=== PATIENT | male | born 1955 | race Caucasian/White ===

== ENCOUNTER 2024-02-05 14:36 | Emergency (ER) | payer MEDICARE, OTHER, SELFPAY ==
[2024-02-05 14:41] VITALS: BP 115/97; BMI 35.6
[2024-02-05 15:00] VITALS: BP 128/70
[2024-02-05 15:23] LABS: % Basophils 0.9 % (0-2); % Eosinophils 2.8 % (0-6); % Immature Granulocytes 1.2 % (0-0.5); % Lymphocytes 23.5 % (20.5-51.1); % Monocytes 9.3 % (1.7-9.3); % Neutrophils 62.3 % (42.2-75.2); Absolute Basophils 0.1 10^3/uL (0-0.2); Absolute Eosinophils 0.2 10^3/uL (0-0.7); Absolute Immature Granulocytes 0.1 10^3/uL (0-0.05); Absolute Lymphocytes 1.9 10^3/uL (1.2-3.4); Absolute Monocytes 0.8 10^3/uL (0.1-0.6); Absolute Neutrophils 5.1 10^3/uL (1.4-6.5); Hematocrit 43.9 % (39.0-52.0); Hemoglobin 14.1 g/dL (13.0-18.0); Mean Corp Hgb Conc. 32.1 g/dL (33.0-37.0); Mean Corpuscular Hgb 32.2 pg (27.0-31.0); Mean Corpuscular Volume 100.2 fL (80.0-94.0); Mean Platelet Volume 9.9 fL (7.4-10.4); Nucleated Red Blood Cells % 0 % (-); Platelet Count 271 10^3/uL (130-400); Red Blood Cell Count 4.38 10^6/uL (4.70-6.10); Red Cell Dist. Width 13.8 % (11.5-14.5); White Blood Cell Count 8.2 10^3/uL (4.8-10.8)
--- NOTE | 2024-02-05 15:25 | ED.GENMED ---
History of Present Illness
General
Chief Complaint: Swelling
Source: patient and retirement records
Exam Limitations: none
Time Seen by Provider: 02/05/24 15:06
Nursing documentation reviewed up to this point in time: agreed with
History of Present Illness
History of Present Illness:
68-year-old male referred from his care facility for persistent DVT of his left lower extremity for 3 weeks despite Eliquis use
Patient denies chest pain or shortness of breath he does admit to swelling of his left lower extremity initially told me that he was not on any blood thinners they were stopped because he had cardiac stents placed, this apparently is not true, based
upon my review of the retirement notes and the call into our charge nurse
Past History
Past History
ED Past Medical History: Arrthythmia (Paroxysmal atrial fibrillation), CAD, COPD, HTN, Hypercholesterolemia, [place] (February 2017), Other (Depression, anemia, tobacco dependence) and Other
ED Past Surgical History: Cardiac (PTCA with stent) and Urological (Right nephrectomy June 2017)
Social History
Tobacco: Smoker
Alcohol: Chronic alcoholic
Drug: None
Personal:
Living: with family (with brother)
Employment: Retired
Family History
Family History: Other (No significant)
Review of Systems
Review of Systems
All Other Systems: Not applicable
Respiratory: Reports no symptoms
Cardiac: Reports no symptoms
ABD/GI: Reports no symptoms
Phy Exam
Physical Exam
Physical Exam:
Physical Exam
General: Chronically ill male
Neck: No jaw
Heart: s1/s2 regular rate and rhythm, no murmur. equal radial pulses.
Lungs: no acute respiratory distress. clear bilaterally
Abdomen: Nontender
Neuro: alert and oriented. Contractures are
Skin: no rash
Psychiatric: well kept.
Extremities: Swelling left greater than right calf
Scores
Heart Failure Risk
Heart Failure Risk Score: Not Applicable
Course
Orders/Labs/Results
Orders:
Orders
02/05/24 15:06
IV Insert/Care/Rem.- Treatment PRN
02/05/24 15:07
Complete Blood Count/With Diff Urgent
Comprehensive Metabolic Panel Urgent
02/05/24 15:23
US Periph Venous LOWER Ext LT Urgent
Comment:
Reason For Exam: swelling
02/05/24 15:24
Electrocardiogram (*1) Urgent
Reason for Study: Palpitations
EKG- Treatment ONCE
02/05/24 16:18
Apixaban [Eliquis] 5 mg PO NOW STA
Abnormal Lab Results
02/05/24
15:07
RBC 4.38 L 10^6/uL
(4.70-6.10)
MCV 100.2 H fL
(80.0-94.0)
MCH 32.2 H pg
(27.0-31.0)
MCHC 32.1 L g/dL
(33.0-37.0)
Abs Immat Gran (auto) 0.1 H 10^3/uL
(0-0.05)
Absolute Monos (auto) 0.8 H 10^3/uL
(0.1-0.6)
Immature Gran % 1.2 H %
(0-0.5)
BUN 21 H mg/dl
(9-20)
Total Protein 5.7 L g/dl
(6.3-8.2)
02/05/24 15:07
02/05/24 15:07
Vital Signs
Initial and Last Documented VS:
Initial Vital Signs
Temp Pulse Resp BP Pulse Ox
98.7 F 67 14 115/97 96
02/05/24 14:41 02/05/24 14:41 02/05/24 14:41 02/05/24 14:41 02/05/24 14:41
Last Documented Vital Signs
Temp Pulse Resp BP Pulse Ox
98.7 F 62 13 128/70 96
02/05/24 14:41 02/05/24 15:30 02/05/24 15:30 02/05/24 15:00 02/05/24 15:30
MDM/Problems Addressed
Differential Diagnosis Includes:
DVT, already on Eliquis, cellulitis, question treatment failure
MDM/Problems Addressed:
Lower extremity swelling
Chronic conditions affecting care:
Prior DVT muscle wasting AF
Chronic conditions affecting care: Arrhythmia
Acute Exacerbation and/or Progression of Chronic Illness: Arrhythmia
*Radiology
Radiology exam reviewed: radiology read reviewed
*Measurement Analyst Interpretation
Rate: normal
Interpretation: normal
Heart Rate: 78
Rhythm: sinus
*Critical Care Note
Total Time (30-74mins, 75-104mins- exclusive of procedures): Not Applicable
Update Note
Update Note:
Update, meds reconciled for pharmacy he has been on Eliquis 5 twice daily apparently for about a month ultrasound reviewed with the radiologist,
Reviewed with on-call hospitalist not yet a treatment failure as would typically be on the med for longer than a month, no signs of arterial compromise/phlegmasia
Will discharge out continue Eliquis 5 twice daily
ED Attending Note
-
Portions of this chart may have been created with voice recognition software.� Occasional wrong word or��sound alike� substitutions may have occurred due to the inherent limitations of voice recognition software.
Discharge Plan
Departure
Patient Disposition: Jail/SNF
Date of Disposition: 02/05/24
Time of Disposition: 16:25
Condition: Good
Discharge Problem:
DVT (deep venous thrombosis)
Instructions: Deep vein thrombosis (blood clot in the leg)
Prescriptions:
No Action
atorvastatin 80 MG tablet
60 mg PO HS
Anoro Ellipta 1 EACH blister with device
1 puff inhalation R DAILY
acetaminophen [Tylenol] 325 mg Tablet
650 mg PO Q4HPRN PRN (Reason: mild pain)
lidocaine 4 % Adhesive Patch,Medicated
1 patch TOPICAL DAILYPRN PRN (Reason: right shoulder)
tizanidine 2 mg Tablet
2 mg PO BID
trazodone 50 mg Tablet
175 mg PO HS
clonazepam [Klonopin] 0.5 mg Tablet
0.5 mg PO DAILY
lidocaine 4 % Cream
1 applic TOPICAL TIDPRN PRN (Reason: right calf)
loperamide 2 mg Tablet
2 mg PO Q6HPRN PRN (Reason: diarrhea)
dextromethorphan-guaifenesin [Robitussin-DM] 10-100 mg/5 mL Syrup
10 ml PO Q4HPRN PRN (Reason: cough)
aspirin 81 mg Tablet,Delayed Release (Dr/Ec)
81 mg PO BID
guaifenesin [Robafen] 100 mg/5 mL Liquid
200 mg PO Q4HPRN PRN (Reason: cough)
magnesium hydroxide [Milk of Magnesia] 400 mg/5 mL Suspension
2,400 mg PO [id number] PRN (Reason: if no bm on 3rd day)
tamsulosin [Flomax] 0.4 mg Capsule
0.4 mg PO HS
bisacodyl [Dulcolax (bisacodyl)] 10 mg Suppository
10 mg NV DAILYPRN PRN (Reason: if no aftr mom)
Fleet Enema 19-7 gram/118 mL Enema
118 ml NV DAILYPRN PRN (Reason: if no bm aftr dulcalax)
gabapentin 300 mg Capsule
300 mg PO BID
albuterol sulfate [ProAir HFA] 90 mcg/actuation Hfa Aerosol Inhaler
2 puff INHALATION R Q4HPRN PRN (Reason: sob)
fluticasone propionate [Flonase] 50 mcg/actuation [place],Suspension
1 spray INTRANASAL DAILY
finasteride 5 mg Tablet
5 mg PO DAILY
Icy Hot (menthol) 5 % Adhesive Patch,Medicated
1 patch TOPICAL DAILY
bupropion HCl 150 mg Tablet Extended Release 24 Hr
150 mg PO DAILY
aripiprazole [Abilify] 2 mg Tablet
2 mg PO HS
tramadol 100 mg Tablet Extended Release 24 Hr
100 mg PO DAILY
Lumigan 0.01 % Drops
1 drp BOTH EYES HS
melatonin 10 mg Tablet
10 mg PO HS
Eliquis 5 mg Tablet
5 mg PO BID
metoprolol succinate 50 MG tablet extended release 24 hr
50 mg PO QPM
tramadol 50 MG tablet
50 mg PO TIDPRN PRN (Reason: moderate pain)
cyanocobalamin (vitamin B-12) 1,000 MCG tablet
1,000 mcg PO DAILY
thiamine HCl (vitamin B1) 100 MG tablet
100 mg PO BID
amlodipine 5 MG tablet
5 mg PO DAILY
folic acid 1 MG tablet
1 mg PO DAILY
Referrals:
Radha Amaya DO [Family Provider] - Next open appointment
Activity Restrictions/Additional Instructions:
Continue Eliquis 5 mg twice a day
It can take up to 3 months of treatment to dissolve your clot
Interventions
Interventions:
*Risk Screen - Suicide Last Done: 02/05/24 14:41
*General Assessment Last Done: 02/05/24 14:41
*Neglect/Abuse Screening Last Done: 02/05/24 14:41
ED- Fall Risk Assessment Last Done: 02/05/24 14:56
*ED COVID-19 Vaccine History Last Done: 02/05/24 14:41
ED- Cardiac Assessment Last Done: 02/05/24 15:32
ED- Pulmonary Assessment Last Done: 02/05/24 15:32
ED-Skin Assessment Last Done: 02/05/24 14:56
Discharge Date and Time
Print Language: PASHTO
[2024-02-05 15:44] LABS: ALT (SGPT) 27 U/L (0-50); AST (SGOT) 22 U/L (17-59); Albumin 3.6 g/dl (3.5-5.0); Alkaline Phosphatase 90 U/L (38-126); Blood Urea Nitrogen 21 mg/dl (9-20); Carbon Dioxide 27 mmol/L (22-30); Chloride 104 mmol/L (98-107); Estimated Creatinine Clearance 55 ml/min; Glucose 86 mg/dl (70-99); Potassium 4.4 mmol/L (3.5-5.1); Sodium 138 mmol/L (135-145); Total Bilirubin 0.4 mg/dl (0.2-1.3); Total Protein 5.7 g/dl (6.3-8.2)
[2024-02-05 16:23] VITALS: BP 132/60
[2024-02-05] MEDS: ELIQUIS 5 MG PO (16:40)
--- NOTE | 2024-02-05 16:53 | EDRN ---
is arranging transport back to [facility] at this time.
[2024-02-05 17:00] VITALS: BP 135/63
== END 2024-02-05 18:25 ==
LOC: EMR 14:36
PROVIDERS: Student in an Organized Health Care Education/Training Program; EMERGENCY PHYSICIAN Emergency Medicine; FAMILY PHYSICIAN Hospitalist
DX: I82.402 Acute embolism and thrombosis of unspecified deep veins of left lower extremity (principal); R22.42 Localized swelling, mass and lump, left lower limb; I48.0 Paroxysmal atrial fibrillation; I25.10 Atherosclerotic heart disease of native coronary artery without angina pectoris; I10 Essential (primary) hypertension; J44.9 Chronic obstructive pulmonary disease, unspecified; E78.00 Pure hypercholesterolemia, unspecified; I25.2 Old myocardial infarction; F32.A Depression, unspecified; D64.9 Anemia, unspecified; F17.200 Nicotine dependence, unspecified, uncomplicated
CPT/HCPCS: 99284; 80053; 85025; 93005; 93971

== ENCOUNTER → 2024-08-06 13:36 | Outpatient (REF) | payer MEDICARE, OTHER, SELFPAY | LOC: HWRCS 13:36 | PROVIDERS: ATTENDING PHYSICIAN Physician Assistant; FAMILY PHYSICIAN Hospitalist | DX: I25.10 Atherosclerotic heart disease of native coronary artery without angina pectoris (principal); I10 Essential (primary) hypertension | CPT/HCPCS: 93306 ==

== ENCOUNTER 2024-08-14 20:08 | Inpatient (IN) | payer MEDICARE, OTHER, SELFPAY ==
[2024-08-14 16:23] VITALS: BP 109/70; BMI 35.1
[2024-08-14 16:24] VITALS: BP 109/70
--- NOTE | 2024-08-14 16:38 | ED.GENMED ---
History of Present Illness
General
Chief Complaint: Change in Mental Status
Time Seen by Provider: 08/14/24 16:28
History of Present Illness
History of Present Illness:
68-year-old presents to the emergency department for ration of confusion/altered mental status from his nursing facility. Reportedly has been more confused than normal although does have a reported history of dementia. On arrival the patient
offers no acute complaints other than stating 'I cannot focus'. He denies any pain. Arrives with labs that were drawn yesterday showing mildly elevated BUN/creatinine however no prior for comparison immediately available
Past History
Past History
ED Past Medical History: Arrthythmia (Paroxysmal atrial fibrillation), CAD, COPD, HTN, Hypercholesterolemia, [place] (February 2017), Other (Depression, anemia, tobacco dependence) and Other
ED Past Surgical History: Cardiac (PTCA with stent) and Urological (Right nephrectomy June 2017)
Social History
Tobacco: Smoker
Alcohol: Chronic alcoholic
Drug: None
Personal:
Living: with family (with brother)
Employment: Retired
Family History
Family History: Other (No significant)
Review of Systems
Review of Systems
Allergies reviewed?: Yes
All Other Systems: ROS reviewed and negative except as documented in HPI and ROS
Phy Exam
Physical Exam
Physical Exam:
GEN: Well appearing, NAD, WDWN
HEENT: Oral mucosa moist, no scleral icterus
Cardiac: Regular rate And rhythm, no murmur
Lung: No respiratory distress, no tachypnea, Lungs clear to auscultation
MSK: No gross deformity or injuries
Skin: Good color, no pallor or jaundice, no rashes
Neuro: AO x2, moves all extremities freely
Psych: Calm, cooperative
Course
Orders/Labs/Results
Orders:
Orders
08/14/24 Dinner
Cholesterol Lowering
At Your Request: Full Participation
Cholesterol Lowering: Sodium, 2 Gram
08/14/24 16:29
EKG [Electrocardiogram (*1)] Urgent
Reason for Study: Palpitations
EKG- Treatment ONCE
08/14/24 16:35
Complete Blood Count/With Diff Urgent
Comprehensive Metabolic Panel Urgent
08/14/24 16:37
CR Chest Portable - 1 View Urgent
Comment:
Reason For Exam: confusion
Reason Study Needs to be Portable: Other
08/14/24 16:43
COVID-19 Antigen Urgent
Source: Nasal Swab
Urinalysis Reflex To Culture Urgent
Date Specimen was Collected: 08/14/24
Time Specimen was Collected: 16:41
Urine Microscopic Reflex Cult Urgent
Urine Culture Urgent
[place] Source: U
Specimen Description:
Date Specimen was Collected: 08/14/24
Time Specimen was Collected: 16:41
08/14/24 17:19
Piperacillin/Tazo 3.375 Gram [Zosyn] 3.375 gram in 50 ml IV NOW
08/14/24 18:23
Acetaminophen [Tylenol] 650 mg .ROUTE .STK-MED ONE
08/14/24 18:36
Acetaminophen [Tylenol] 650 mg PO NOW STA
08/14/24 18:43
Lactic Acid Q4H
Comment: CANCEL 2nd LACTIC ACID IF 1st LACTIC ACID IS LESS THAN 2
Blood Culture Q30M
[place] Source: Blood/Venous
Specimen Description:
Blood Culture Q30M
[place] Source: Blood/Venous
Specimen Description:
08/14/24 19:37
Admit/Transfer Patient As Directed
Co-Sign Provider:
Level of Care: Inpatient admission
Assign to:: Medical/Surgical
Physician / Group: Yanick
Diagnosis: complicated UTI
Reason for Hospitalization: complicated UTI
Expected length of stay greater than two midnights?: Yes
ELOS- Estimated Length of Stay in days: 2
I certify the patient meets the requirements for IP care: Yes
08/14/24 19:38
PRN Pain Medication Management As Directed
May give lesser potent ordered pain med per pt: Yes
preference::
Protocol:: Medication orders for pain may be administered in a
manner that supports deferring to patient preference
when the pt is:
- Requesting an ordered lesser potent pain medication.
Least to most potent pain medications are defined
as: acetaminophen < NSAID < tramadol < opioids
(morphine, oxycodone, hydromorphone).
- Requesting a lesser dose of the same medication IF
ORDERED.
- Requesting a less intrusive route of administration
if both routes are prescribed by the provider (PO <
IV).
08/14/24 19:42
Code Status As Directed
Resuscitation Status: Limited DNR
Limited DNR: -No intubation
08/14/24 20:46
Acetaminophen [Tylenol] 650 mg PO Q4HPRN PRN
Apixaban [Eliquis] 5 mg PO BID
Aspirin Low Dose EC [Aspir Low (Enteric Coated)] 81 mg PO BID
Bisacodyl [Dulcolax] 10 mg RECTAL [id number] PRN
Docusate W/Senna [Senokot-S] 1 tablet PO BIDPRN PRN
Gabapentin [Neurontin] 300 mg PO BID
Guaifenesin/Dextromethorphan [Robitussin Dm] 10 ml PO Q4HPRN PRN cough
Ipratropium/Albuterol Sulfate [Duoneb] 3 ml INH R QID
Magnesium Hydroxide [Milk of Magnesia] 30 ml PO [id number] PRN if no bm on 3rd day
Polyethylene Glycol Powder [Miralax] 17 grams PO DAILYPRN PRN
Tizanidine [Zanaflex] 2 mg PO BID
Tramadol HCl [Ultram] 50 mg PO TIDPRN PRN moderate pain
08/14/24 20:46
VTE Contraindication Routine
VTE Mechanical Device Contraindication: Medical Contraindication
Pharmocologic Contraindication: Medical Contraindication
Activity As Directed
Activity Level: With Assistance
Vital Signs As Directed
Frequency: Per unit guidelines
O2 Therapy [RESP] Routine
Nasal Cannula Liter Flow: 1 LPM
Titrate/Wean O2 to maintain O2 sat greater than (%): 93
Pulse Ox/spot Check [RESP] Routine
Quantity: 1
08/14/24 21:00
Thiamine HCl [Vitamin B1] 100 mg PO BID
08/14/24 22:00
Aripiprazole [Abilify] 2 mg PO HS
Atorvastatin [Lipitor] 60 mg PO HS
Latanoprost [Xalatan Ophthalmic Solution] See Dose Instructions BOTH EYES HS
Melatonin 10 mg PO HS
Tamsulosin [Flomax] 0.4 mg PO HS
Trazodone [Desyrel] 150 mg PO HS
08/15/24 00:00
Piperacillin/Tazo 3.375 Gram [Zosyn] 3.375 gram in 50 ml IV Q6H
08/15/24 06:00
Basic Metabolic Panel IN AM
Complete Blood Count/No Diff IN AM
Magnesium IN AM
08/15/24 08:00
Amlodipine [Norvasc] 5 mg PO DAILY
Bupropion(24Hr)Extended Releas [WELLBUTRIN XL (24 hour extended release)] 150 mg PO DAILY
Clonazepam [Klonopin] 0.5 mg PO DAILY
Cyanocobalamin [Vitamin B-12] 1,000 mcg PO DAILY
FOLic ACID [Folvite] 1 mg PO DAILY
Finasteride [Proscar] 5 mg PO DAILY
Furosemide [Lasix] 20 mg PO DAILY
Tiotropium Entriken 2.5 Mcg [Spiriva Respimat 2.5 Mcg] 2 puff INH R DAILY
08/15/24 18:00
Metoprolol Xl [Toprol Xl] 50 mg PO QPM
Abnormal Lab Results
08/14/24 08/14/24
16:35 16:43
RBC 4.67 L 10^6/uL
(4.70-6.10)
MPV 11.4 H fL
(7.4-10.4)
Absolute Neuts (auto) 7.5 H 10^3/uL
(1.4-6.5)
Absolute Lymphs (auto) 0.9 L 10^3/uL
(1.2-3.4)
Absolute Monos (auto) 1.3 H 10^3/uL
(0.1-0.6)
Neutrophils % 76.5 H %
(42.2-75.2)
Lymphocytes % 9.4 L %
(20.5-51.1)
Monocytes % 12.7 H %
(1.7-9.3)
BUN 29 H mg/dl
(9-20)
Creatinine 1.5 H mg/dL
(0.7-1.3)
Glucose 102 H mg/dl
(70-99)
Urine Ketones 1+ A
(Negative)
Ur Occult Blood Reflex 2+ A
(Negative)
Urine Nitrite (Reflex) Positive A
(Negative)
Leukocyte Esterase Rfl 2+ A
(Negative)
Urine RBC 3-6 A /HPF
(0-2)
Urine WBC (Reflex) 26-30 A /HPF
(0-5)
Urine Bacteria (Reflex) Many A
(Negative)
Urine Albumin (Reflex) 2+ A
(Neg - Trace)
08/14/24 16:35
08/14/24 16:35
Vital Signs
Initial and Last Documented VS:
Initial Vital Signs
Temp Pulse Resp BP Pulse Ox
98.7 F 103 20 109/70 93
08/14/24 16:23 08/14/24 16:23 08/14/24 16:23 08/14/24 16:23 08/14/24 16:23
Last Documented Vital Signs
Temp Pulse Resp BP Pulse Ox
98.4 F 87 18 141/78 93
08/14/24 21:24 08/14/24 21:48 08/14/24 21:48 08/14/24 21:24 08/14/24 21:48
MDM/Problems Addressed
MDM/Problems Addressed:
Limited for IV antibiotics on the basis of acute UTI resulting in toxic metabolic encephalopathy
*Critical Care Note
Total Time (30-74mins, 75-104mins- exclusive of procedures): Not Applicable
ED Attending Note
-
Portions of this chart may have been created with voice recognition software.� Occasional wrong word or��sound alike� substitutions may have occurred due to the inherent limitations of voice recognition software.
Discharge Plan
Departure
Patient Disposition: Admit
Date of Disposition: 08/14/24
Time of Disposition: 19:06
Admit to: Med/Surg
Presentation/result/management discussed w/ accepting MD/DO: Hospitalist
Discharge Problem:
Urinary tract infection, Toxic metabolic encephalopathy
Interventions
Interventions:
*Risk Screen - Suicide Last Done: 08/14/24 16:23
*General Assessment Last Done: 08/14/24 16:23
*Neglect/Abuse Screening Last Done: 08/14/24 16:23
*ED- Fall Risk Assessment Last Done: 08/14/24 16:23
*ED COVID-19 Vaccine History Last Done: 08/14/24 16:23
*Nursing Disposition Last Done: 08/14/24 20:47
ED- Pulmonary Assessment Last Done: 08/14/24 20:47
ED-Psychological Assessment Last Done: 08/14/24 20:47
ED- Neurological Assessment Last Done: 08/14/24 16:56
ED- Cardiac Assessment Last Done: 08/14/24 20:47
ED Swallowing Screen Last Done: 08/14/24 16:56
Discharge Date and Time
Discharge Date/Time: 08/14/24 20:49
[2024-08-14 16:56] LABS: Urine Albumin 2+ (Neg - Trace); Urine Bilirubin Negative (Negative); Urine Character Clear (Clear); Urine Color Yellow; Urine Glucose Negative (Negative); Urine Ketone 1+ (Negative); Urine Leukocyte 2+ (Negative); Urine Nitrite Positive (Negative); Urine Occult Blood 2+ (Negative); Urine Urobilinogen Negative (Neg - 1+)
[2024-08-14 17:00] VITALS: BP 124/85
[2024-08-14 17:10] LABS: COVID-19 Antigen Negative (Negative)
[2024-08-14 17:14] LABS: Urine Bacteria Many (Negative); Urine Squamous Cell 0-2 /LPF (Few)
[2024-08-14 17:15] LABS: Urine White Cell 26-30 /HPF (0-5)
[2024-08-14 17:16] LABS: ALT (SGPT) 17 U/L (0-50); AST (SGOT) 17 U/L (17-59); Albumin 4.2 g/dl (3.5-5.0); Alkaline Phosphatase 106 U/L (38-126); Blood Urea Nitrogen 29 mg/dl (9-20); Calcium 9.4 mg/dl (8.4-10.2); Carbon Dioxide 26 mmol/L (22-30); Chloride 106 mmol/L (98-107); Estimated Creatinine Clearance 49 ml/min; Glucose 102 mg/dl (70-99); Potassium 3.9 mmol/L (3.5-5.1); Sodium 141 mmol/L (135-145); Total Bilirubin 0.8 mg/dl (0.2-1.3); Total Protein 6.8 g/dl (6.3-8.2); eGFR 49.77
[2024-08-14] MEDS: ZOSYN 50 IV (18:24)
[2024-08-14] MEDS: TYLENOL 650 MG PO (18:36)
[2024-08-14 18:43] LABS: % Basophils 0.4 % (0-2); % Eosinophils 0.8 % (0-6); % Immature Granulocytes 0.2 % (0-0.5); % Lymphocytes 9.4 % (20.5-51.1); % Monocytes 12.7 % (1.7-9.3); % Neutrophils 76.5 % (42.2-75.2); Absolute Eosinophils 0.1 10^3/uL (0-0.7); Absolute Lymphocytes 0.9 10^3/uL (1.2-3.4); Absolute Monocytes 1.3 10^3/uL (0.1-0.6); Absolute Neutrophils 7.5 10^3/uL (1.4-6.5); Hematocrit 42.4 % (39.0-52.0); Hemoglobin 14.2 g/dL (13.0-18.0); Mean Corp Hgb Conc. 33.5 g/dL (33.0-37.0); Mean Corpuscular Hgb 30.4 pg (27.0-31.0); Mean Corpuscular Volume 90.8 fL (80.0-94.0); Mean Platelet Volume 11.4 fL (7.4-10.4); Nucleated Red Blood Cells % 0 % (-); Platelet Count 237 10^3/uL (130-400); Red Blood Cell Count 4.67 10^6/uL (4.70-6.10); Red Cell Dist. Width 13.7 % (11.5-14.5); White Blood Cell Count 9.8 10^3/uL (4.8-10.8)
[2024-08-14 19:09] LABS: Lactic Acid 1.2 mmol/L (0.7-2.0)
--- NOTE | 2024-08-14 19:11 | HPS.HSE ---
Family Physician
-
Family Physician: NOT KNOW UNKNOWN - PT DOES
Chief Complaint
-
Altered mental status
History of Present Illness
Is a 68-year-old with past medical history of dementia, CKD, proximal atrial fibrillation anticoagulation, COPD not on home O2, hyperlipidemia, hypertension, BPH here with history of chronic urinary tract infections, anxiety and depression as well
as history of alcohol dependence and alcohol induced dementia, chronic ongoing tobacco use presenting to the emergency department with increasing confusion from the group home.
According to group home staff and daughter patient started having increasing confusion yesterday. They started some workup for urinary tract infection as this was suspected however he was unable to comply to provide a urine sample. Blood work
was mostly unremarkable except for a creatinine that was recorded to be slightly elevated. Daughter reported that about 1 week ago on Monday patient was in usual state of health but later that evening they noted that he had cold and cough. He has
not had any persistence of the cough or cold-like symptoms. He has not reported any fevers or chills. He had no flank pain.
Emergency Department he was somewhat agitated and not very cooperative. Urine was malodorous.
He was afebrile with a temp of 99, blood pressure was 124/85 with a pulse of 101 and was satting 94% on room air.
The ECG was sinus rhythm with PVCs at a rate of 99. Chest x-ray shows bilateral lower lobe infiltrates consistent with pneumonia or atelectasis.
COVID test was negative.
CBC here was unremarkable. Electrolytes were all stable. BUN/creatinine were 10 and 1.5 which is similar to prior.
Lactate was negative.
UA was markedly positive with nitrites leukocyte esterase bacteria and white cells.
Medical History
Past Medical History
Past Medical History: Reports Arrhythmia and Other
Additional Past Medical History:
Proximal atrial fibrillation
COPD not on home O2
CAD
Hypertension
Hyperlipidemia
BPH
Depression/anxiety
Tobacco dependence
Prior alcohol dependence
Past Surgical History: Reports Other
Additional Past Surgical History:
Right nephrectomy
Social History
Alcohol: Former
Drug: None
Personal: Single
Living: [facility]
Family History
Family History: Not pertinent
Allergies / Home Medications
Allergies reflects when Allergies were last updated in [facility].
Home Medications with original date entered in [facility]
Allergy/Medication List:
Allergies
Allergy/AdvReac Type Severity Reaction Status Date / Time
horse dander Allergy Unknown Verified 02/05/24 14:40
venom-honey bee Allergy STING-HIVES Verified 02/05/24 14:40
Home Medications
atorvastatin 80 mg tablet 60 mg PO HS High cholesterol 01/27/20
umeclidinium 62.5 mcg-vilanterol 25 mcg/actuation powdr for inhalation (Anoro Ellipta) 1 puff inhalation R DAILY Lung/breathing issues 01/27/20
acetaminophen 325 mg tablet (Tylenol) 650 mg PO Q4HPRN PRN mild pain 02/05/24
albuterol sulfate 90 mcg/actuation aerosol inhaler 2 puff inhalation R Q4HPRN PRN sob 02/05/24
amlodipine 5 mg tablet 5 mg PO DAILY Blood Pressure 02/05/24
apixaban 5 mg tablet (Eliquis) 5 mg PO BID Blood Clot Prevention/Tx 02/05/24
aripiprazole 2 mg tablet (Abilify) 2 mg PO HS Mental Health/Anxiety 02/05/24
aspirin 81 mg tablet,delayed release 81 mg PO BID Blood Clot Prevention/Tx 02/05/24
bimatoprost 0.01 % eye drops (Lumigan) 1 drp BOTH EYES HS Eye Condition 02/05/24
bisacodyl 10 mg rectal suppository (Dulcolax (bisacodyl)) 10 mg CA DAILYPRN PRN if no aftr mom 02/05/24
bupropion HCl 150 mg 24 hr tablet, extended release 150 mg PO DAILY depression/anxiety 02/05/24
clonazepam 0.5 mg tablet (Klonopin) 0.5 mg PO DAILY anxiety 02/05/24
cyanocobalamin (vitamin B-12) 1,000 mcg tablet 1,000 mcg PO DAILY Supplement 02/05/24
dextromethorphan-guaifenesin 10 mg-100 mg/5 mL oral syrup 10 ml PO Q4HPRN PRN cough 02/05/24
finasteride 5 mg tablet 5 mg PO DAILY Urinary Issue 02/05/24
fluticasone propionate 50 mcg/actuation nasal spray,suspension 1 spray intranasal DAILY Allergies 02/05/24
folic acid 1 mg tablet 1 mg PO DAILY Supplement 02/05/24
gabapentin 300 mg capsule 300 mg PO BID pain 02/05/24
guaifenesin 100 mg/5 mL oral liquid (Robafen) 200 mg PO Q4HPRN PRN cough 02/05/24
lidocaine 4 % topical cream 1 applic topical TIDPRN PRN right calf 02/05/24
lidocaine 4 % topical patch 1 patch topical DAILYPRN PRN right shoulder 02/05/24
loperamide 2 mg tablet 2 mg PO Q6HPRN PRN diarrhea 02/05/24
magnesium hydroxide 400 mg/5 mL oral suspension (Milk of Magnesia) 2,400 mg PO [id number] PRN if no bm on 3rd day 02/05/24
melatonin 10 mg tablet 10 mg PO HS Sleep 02/05/24
menthol 5 % topical patch (Icy Hot (menthol)) 1 patch topical DAILY back pain 02/05/24
metoprolol succinate 50 mg tablet,extended release 24 hr 50 mg PO QPM Blood Pressure 02/05/24
sodium phosphates 19 gram-7 gram/118 mL enema (Fleet Enema) 118 ml CA DAILYPRN PRN if no bm aftr dulcalax 02/05/24
tamsulosin 0.4 mg capsule (Flomax) 0.4 mg PO HS Urinary Issue 02/05/24
thiamine HCl (vitamin B1) 100 mg tablet 100 mg PO BID Supplement 02/05/24
tizanidine 2 mg tablet 2 mg PO BID muscle spasm/pain 02/05/24
tramadol 100 mg tablet,extended release 24 hr 100 mg PO DAILY pain 02/05/24
tramadol 50 mg tablet 50 mg PO TIDPRN PRN moderate pain 02/05/24
trazodone 50 mg tablet 175 mg PO HS sleep 02/05/24
Review of Systems
-
Unable to obtain full review of systems at this time due to: Dementia
Physical Exam
Vital Signs
Vital Signs
Temp Pulse Resp BP Pulse Ox
99 F 101 17 124/85 94
08/14/24 18:28 08/14/24 18:45 08/14/24 18:45 08/14/24 17:00 08/14/24 18:15
Physical Exam
General: Well Developed, Well Nourished and No Apparent Distress
HEENT: NormoCephalic, Anicteric, Moist mucous membranes and Atraumatic
Respiratory: Clear and Non Labored Respirations; No Wheezes, Rales, Rhonchi or Crackles
Cardiac: S1/S2 and Regular Rhythm
Breast: Deferred by me
GI: Soft, Non Tender, Non Distended and Other (Ventral hernia)
Rectal: Deferred by Provider
Genito-urinary: Deferred by me
Musculoskeletal: No Clubbing, No Cyanosis and No Edema
Skin: Warm
Neuro: Alert, Oriented (Oriented to person only) and Nonfocal/grossly intact
Hematologic/Lymphatic: No Lymphadenopathy
Psych: Agitated
Laboratory Results
-
08/14/24 16:35
08/14/24 16:35
Laboratory Results
Lactic Acid 1.2 mmol/L (0.7-2.0) 08/14/24 18:43
Total Bilirubin 0.8 mg/dl (0.2-1.3) 08/14/24 16:35
AST 17 U/L (17-59) 08/14/24 16:35
ALT 17 U/L (0-50) 08/14/24 16:35
Alkaline Phosphatase 106 U/L (38-126) 08/14/24 16:35
Data Reviewed
-
Diagnostic Radiology: Image Personally Visualized and interpreted and Report Reviewed by me
Medical Tests (Nuc Med, Echo, EKG etc): Image Personally Visualized and interpreted
Lab Data: Labs Reviewed by me
Old Records: Reviewed
Impression/Plan
-
IMPRESSION:
This is a 68-year-old with history of dementia, prior alcohol dependence, tobacco dependence, COPD, proximal atrial fibrillation, CAD status post stenting, hypertension, BPH and recurrent UTIs presented to the emergency department with confusion and
found to have positive UA consistent with urinary tract infection. History of E. coli ESBL UTI in the past. He is hemodynamic stable afebrile and without systemic symptoms other than the confusion.
PLAN:
Toxic metabolic encephalopathy secondary to UTI -complicated UTI
-Admit to MedSurg
-Blood and urine cultures
-Will continue with Zosyn for now
-Redirection
-Medical restraints if needed
COPD -stable respirations, x-ray read as bilateral lower lobe pneumonia. No acute respiratory symptoms at this time not on oxygen.
-Will continue with Zosyn
-Continue nebs
-No indication for acute steroid
-COVID-negative
Atrial fibrillation -currently sinus without tachycardia
-Continue anticoagulation, Eliquis 5 twice daily
- Rate control with metoprolol
Dementia, anxiety/depression
-Continue Abilify
� Continue bupropion
� Continue Klonopin as needed
BPH
� Bladder scan for urinary retention
� Continue finasteride
� Continue tamsulosin
Tobacco use
- nicotine patch
Priot ETOH
- continue thiamine, folate
DVT PPX - on apixaban
Code status - limited, DNI,
[2024-08-14 21:24] VITALS: BP 141/78
[2024-08-14] MEDS: DUONEB 3 ML INH (21:44)
--- NOTE | 2024-08-14 21:55 | VATNOTE ---
CONTACTED TO OBTAIN ORDERED BLOODWORK ON PT. PT REPORTS REASON FOR BC TO BE 'INFECTED IV SITE IN RAC'. PT REPORTS THAT SHE REQUESTED IV BE REMOVED TODAY BY PCN AND THERE WAS 'PUS' WHEN IV REMOVED. AREA APPEARS SLIGHTLY PINK AND PT REPORTS S MILD
TENDERNESS. ARM BEING ELEVATED AND K-PAD TO BE APPLIED PER ORDERS FROM VICE PRESIDENT OF DEVELOPMENT. PCN REPORTS VICE PRESIDENT OF DEVELOPMENT WAS AT BEDSIDE AND ASSESSED RAC.
[2024-08-14] MEDS: LIPITOR 60 MG PO (22:02)
[2024-08-14] MEDS: FLOMAX 0.4 MG PO (22:02)
[2024-08-14] MEDS: VITAMIN B1 100 MG PO (22:02)
[2024-08-14] MEDS: MELATONIN 10 MG PO (22:02)
[2024-08-14] MEDS: ZANAFLEX 2 MG PO (22:02)
[2024-08-14] MEDS: ASPIR LOW (ENTERIC COATED) 81 MG PO (22:02)
[2024-08-14] MEDS: ABILIFY 2 MG PO (22:02)
[2024-08-14] MEDS: DESYREL 150 MG PO (22:03)
[2024-08-14] MEDS: NEURONTIN 300 MG PO (22:03)
[2024-08-14] MEDS: XALATAN OPHTHALMIC SOLUTION 1 DROP BOTH EYES (22:03)
[2024-08-14] MEDS: ELIQUIS 5 MG PO (22:03)
[2024-08-15] MEDS: ZOSYN 50 IV ×4 (00:29→17:17)
[2024-08-15 00:39] VITALS: BP 114/63
[2024-08-15 02:48] VITALS: BMI 35.1
[2024-08-15 05:38] LABS: Hematocrit 40.6 % (39.0-52.0); Hemoglobin 13.4 g/dL (13.0-18.0); Mean Corpuscular Hgb 29.9 pg (27.0-31.0); Mean Corpuscular Volume 90.6 fL (80.0-94.0); Mean Platelet Volume 10.5 fL (7.4-10.4); Platelet Count 237 10^3/uL (130-400); Red Blood Cell Count 4.48 10^6/uL (4.70-6.10); Red Cell Dist. Width 13.7 % (11.5-14.5); White Blood Cell Count 9.2 10^3/uL (4.8-10.8)
[2024-08-15 06:00] VITALS: BMI 33.3
[2024-08-15 06:07] LABS: Blood Urea Nitrogen 28 mg/dl (9-20); Calcium 9.2 mg/dl (8.4-10.2); Carbon Dioxide 28 mmol/L (22-30); Chloride 106 mmol/L (98-107); Estimated Creatinine Clearance 46 ml/min; Glucose 105 mg/dl (70-99); Magnesium 2.3 mg/dl (1.6-2.3); Sodium 143 mmol/L (135-145); eGFR 46.06
[2024-08-15 07:00] VITALS: BP 132/108
[2024-08-15] MEDS: STRIVERDI RESPIMAT 2 PUFF INH (07:22)
[2024-08-15] MEDS: SPIRIVA RESPIMAT 2.5 MCG 2 PUFF INH (07:22)
[2024-08-15] MEDS: PROSCAR 5 MG PO (08:19)
[2024-08-15] MEDS: VITAMIN B-12 1000 MCG PO (08:19)
[2024-08-15] MEDS: ELIQUIS 5 MG PO ×2 (08:19→20:37)
[2024-08-15] MEDS: NEURONTIN 300 MG PO ×2 (08:19→20:37)
[2024-08-15] MEDS: ASPIR LOW (ENTERIC COATED) 81 MG PO ×2 (08:19→20:37)
[2024-08-15] MEDS: VITAMIN B1 100 MG PO ×2 (08:19→20:37)
[2024-08-15] MEDS: ZANAFLEX 2 MG PO (08:19)
[2024-08-15] MEDS: WELLBUTRIN XL (24 hour extended release) 150 MG PO (08:19)
[2024-08-15] MEDS: LASIX 20 MG PO (08:19)
[2024-08-15] MEDS: NORVASC 5 MG PO (08:19)
[2024-08-15] MEDS: KLONOPIN 0.5 MG PO (08:20)
[2024-08-15] MEDS: FOLVITE 1 MG PO (08:20)
[2024-08-15] MEDS: ULTRAM 50 MG PO (08:27)
--- NOTE | 2024-08-15 10:16 | W.PN.HOSP.TC ---
Today's Communication/Plan
-
see A/P
Assessment / Plan
Assessment / Plan
68-year-old with past medical history of dementia, CKD, paroxysmal atrial fibrillation on anticoagulation, COPD not on home O2, hyperlipidemia, hypertension, BPH, history of chronic urinary tract infections, anxiety and depression, history of
alcohol dependence and alcohol induced dementia, chronic ongoing tobacco use; p/w increasing confusion from the [facility].
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
Daughter reported that about 1 week ago patient was in usual state of health but later that evening they noted that he had cold and cough.
A/P:
# Acute metabolic encephalopathy possibly due to UTI +- CAP, in setting of underlying dementia
# Hypoactive delirium
Follow urine culture and blood cultures
CXR noted suspected pneumonia in the bilateral lung bases.
SPL eval
MRSA screen
COVID negative
Cont Zosyn for now
Holding DIRECTOR OF PERIOPERATIVE SERVICES tizanidine, bupropion, clonazepam with current hypoactive delirium
# COPD, stable
Continue nebs
# Paroxysmal Atrial fibrillation
Continue anticoagulation Eliquis 5 mg twice daily
Rate control with metoprolol
# Dementia,
# anxiety/depression
Continue Abilify
Continue bupropion
Continue Klonopin as needed
# BPH
Bladder scan for urinary retention
Continue finasteride
Continue tamsulosin
# Tobacco use
nicotine patch
# Prior ETOH use
continue thiamine, folate
DVT PPX - on apixaban
Code status - limited, DNI
DW RN
updated daughter on the phone
pending med recc
total time 51 min
Anticipated Discharge: > 48 hours
Subjective/Interval History
-
Date of Service: August 15, 2024
Objective Data
-
Labs:
Laboratory Results
08/15/24
05:28
WBC 9.2
Hgb 13.4
Hct 40.6
Plt Count 237
Sodium 143
Potassium 4.0
Chloride 106
Carbon Dioxide 28
BUN 28 H
Creatinine 1.6 H
Glucose 105 H
Calcium 9.2
Vital Signs:
Vital Signs
Temp Pulse Resp BP Pulse Ox
36.7 C 96 18 132/108 93
08/15/24 07:00 08/15/24 08:19 08/15/24 07:25 08/15/24 08:19 08/15/24 07:25
I&O
08/14/24 08/15/24 08/16/24
06:59 06:59 06:59
Intake Total 460 / 460
Output Total 100 / 100
Balance 360 / 360
Review of Systems
-
Unable to obtain full review of systems at this time due to: Dementia
Physical Exam
-
General: Well Developed, Well Nourished, No Apparent Distress and Comfortable; Negative Respiratory Distress
HEENT: Normocephalic, Atraumatic, Nose Appears Normal and Ears Appear Normal; Negative Oxygen
Respiratory: Clear to Auscultation and Non Labored Respirations; Negative Accessory Resp Muscle Use
Cardiac: Regular Rhythm and S1/S2
GI: Soft, Nontender, Nondistended and Normal Bowel Sounds
Skin: Warm and Dry
Psych: Calm
Data Reviewed
-
Diagnostic Radiology: Image personally visualized and interpreted and Report Reviewed by me
Labs: Labs Reviewed by me
[2024-08-15] MEDS: DUONEB INH (10:52)
[2024-08-15] MEDS: VENTOLIN NEBULES 2.5 MG INH ×2 (11:06→19:24)
[2024-08-15 15:00] VITALS: BP 126/64
[2024-08-15 15:03] VITALS: BP 126/64; PULSE 85; O2SAT 94
[2024-08-15] MEDS: VENTOLIN NEBULES INH (15:31)
--- NOTE | 2024-08-15 15:35 | PTOTSP ---
Speech Language Pathology
Pt seen for clinical bedside swallow evaluation. Pt edentulous with dentures at [facility]. He stated he was able to eat anything without dentures, but question accuracy given decreased mastication noted this date. P.O. trials of regular
solids, soft solids, and thin liquids provided. Prolonged and ineffective mastication of regular solids noted with need to expectorate bolus. Slow but adequate mastication of soft solids noted. With thin liquids, wet breath sounds noted at times.
Question aspiration. CXR showed suspected PNA at B lung bases. Pt also reported 'walking PNA' in the last 5-6 months.
Recommend:
(1) VSE
(2) IDDSI Level 6 (soft/bite-sized) solids and thin liquids until VSE completed
(3) Aspiration precautions: sit upright, slow rate, single sips
(4) Meds whole in puree
(5) TURKEY ROLL MAKER to continue to follow
[2024-08-15] MEDS: TOPROL XL 50 MG PO (17:16)
[2024-08-15] MEDS: DESYREL 150 MG PO (21:19)
[2024-08-15] MEDS: MELATONIN 10 MG PO (21:19)
[2024-08-15] MEDS: LIPITOR 60 MG PO (21:19)
[2024-08-15] MEDS: FLOMAX 0.4 MG PO (21:19)
[2024-08-15] MEDS: XALATAN OPHTHALMIC SOLUTION 1 DROP BOTH EYES (21:20)
[2024-08-15 23:15] VITALS: BP 117/67
[2024-08-16] MEDS: ZOSYN 50 IV ×5 (00:01→23:55)
[2024-08-16 06:02] LABS: Hematocrit 39.1 % (39.0-52.0); Hemoglobin 13.1 g/dL (13.0-18.0); Mean Corp Hgb Conc. 33.5 g/dL (33.0-37.0); Mean Corpuscular Hgb 29.8 pg (27.0-31.0); Mean Corpuscular Volume 88.9 fL (80.0-94.0); Mean Platelet Volume 10.8 fL (7.4-10.4); Platelet Count 240 10^3/uL (130-400); Red Cell Dist. Width 13.5 % (11.5-14.5); White Blood Cell Count 9.2 10^3/uL (4.8-10.8)
[2024-08-16 06:27] LABS: Blood Urea Nitrogen 26 mg/dl (9-20); Calcium 8.9 mg/dl (8.4-10.2); Carbon Dioxide 27 mmol/L (22-30); Chloride 105 mmol/L (98-107); Estimated Creatinine Clearance 47 ml/min; Glucose 110 mg/dl (70-99); Magnesium 2.3 mg/dl (1.6-2.3); Potassium 3.6 mmol/L (3.5-5.1); Sodium 140 mmol/L (135-145); eGFR 49.77
[2024-08-16 07:00] VITALS: BP 126/65
[2024-08-16] MEDS: STRIVERDI RESPIMAT 2 PUFF INH (07:40)
[2024-08-16] MEDS: VENTOLIN NEBULES 2.5 MG INH ×4 (07:40→18:10)
[2024-08-16] MEDS: SPIRIVA RESPIMAT 2.5 MCG 2 PUFF INH (07:40)
[2024-08-16] MEDS: KCL 270 MEQ IV (07:54)
[2024-08-16] MEDS: NEURONTIN 300 MG PO ×2 (07:55→20:22)
[2024-08-16] MEDS: ELIQUIS 5 MG PO ×2 (07:55→20:22)
[2024-08-16] MEDS: VITAMIN B-12 1000 MCG PO (07:55)
[2024-08-16] MEDS: ASPIR LOW (ENTERIC COATED) 81 MG PO ×2 (07:55→20:22)
[2024-08-16] MEDS: NORVASC 5 MG PO (07:55)
[2024-08-16] MEDS: LASIX 20 MG PO (07:56)
[2024-08-16] MEDS: FOLVITE 1 MG PO (07:56)
[2024-08-16] MEDS: VITAMIN B1 100 MG PO ×2 (07:56→20:22)
[2024-08-16] MEDS: ABILIFY 2 MG PO (07:56)
[2024-08-16] MEDS: PROSCAR 5 MG PO (07:56)
[2024-08-16] MEDS: ULTRAM 50 MG PO (08:08)
--- NOTE | 2024-08-16 08:50 | PTOTSP ---
Speech Language Pathology
VIDEOFLUOROSCOPIC SWALLOWING EXAMINATION (VSE) completed. Oropharyngeal swallow WFL. Transient supraglottic penetration noted with consecutive sips of thin and mildly thick liquids with no aspiration.
Recommend:
(1) Continue IDDSI Level 6/soft and bite-sized (given edentulous status) and thin liquids
(2) General aspiration precautions
(3) Meds as tolerated
(4) REALTY SPECIALIST to sign off. Please reconsult as indicated
[2024-08-16] MEDS: ROBITUSSIN DM 10 ML PO (09:07)
--- NOTE | 2024-08-16 10:42 | W.PN.HOSP.TC ---
Today's Communication/Plan
-
see A/P
Assessment / Plan
Assessment / Plan
68-year-old with past medical history of dementia, CKD, paroxysmal atrial fibrillation on anticoagulation, COPD not on home O2, hyperlipidemia, hypertension, BPH, history of chronic urinary tract infections, anxiety and depression, history of
alcohol dependence and alcohol induced dementia, chronic ongoing tobacco use; p/w increasing confusion from the snf.
According to snf staff and daughter, patient started having increasing confusion the day COOK HELPER VEGETABLE, which was felt to be 2/2 UTI, however pt was unable to comply to provide a urine sample.
Daughter reported that about 1 week ago patient was in usual state of health but later that evening they noted that he had cold and cough.
A/P:
# Acute metabolic encephalopathy possibly due to UTI +- CAP, in setting of underlying dementia
# Hypoactive delirium, resolved
Follow urine culture
blood cultures x2 so far negative
Cont Zosyn for now
CXR noted suspected pneumonia in the bilateral lung bases.
SPL recc soft and bite size diet
VSE Oropharyngeal swallow WNL
Follow MRSA screen
COVID negative
Holding COOK HELPER VEGETABLE tizanidine/clonazepam; MS has improved, today awake and conversant- would DC tizanidine/clonazepam going forward
# COPD, stable
Continue nebs
# Paroxysmal Atrial fibrillation
Continue anticoagulation Eliquis 5 mg twice daily
Rate control with metoprolol
# Dementia,
# anxiety/depression
Holding COOK HELPER VEGETABLE tizanidine, clonazepam; MS has improved
Continue Abilify
Continue bupropion
# BPH
Bladder scan for urinary retention
Continue finasteride
Continue tamsulosin
# Tobacco use
nicotine patch
# Prior ETOH use
continue thiamine, folate
DVT PPX - on apixaban
Code status - limited, DNI
DW RN
updated daughter on the phone
Anticipated Discharge: 24 - 48 hours
Subjective/Interval History
-
Date of Service: August 16, 2024
Objective Data
-
Labs:
Laboratory Results
08/16/24
05:30
WBC 9.2
Hgb 13.1
Hct 39.1
Plt Count 240
Sodium 140
Potassium 3.6
Chloride 105
Carbon Dioxide 27
BUN 26 H
Creatinine 1.5 H
Glucose 110 H
Calcium 8.9
Vital Signs:
Vital Signs
Temp Pulse Resp BP Pulse Ox
37.1 C 75 18 126/65 93
08/16/24 07:00 08/16/24 07:55 08/16/24 07:42 08/16/24 07:55 08/16/24 07:42
I&O
08/15/24 08/16/24 08/17/24
06:59 06:59 06:59
Intake Total 460 / 460 600 / 600
Output Total 100 / 100 425 / 425
Balance 360 / 360 175 / 175
Review of Systems
-
History Source: Patient
All other systems: Reviewed and negative
Physical Exam
-
General: Well Developed, Well Nourished, No Apparent Distress, Comfortable and Conversant; Negative Respiratory Distress
HEENT: Normocephalic, Atraumatic, Nose Appears Normal and Ears Appear Normal; Negative Oxygen
Respiratory: Clear to Auscultation and Non Labored Respirations; Negative Accessory Resp Muscle Use
Cardiac: Regular Rhythm and S1/S2
GI: Soft, Nontender, Nondistended and Normal Bowel Sounds
Skin: Warm and Dry
Neuro: Awake and Alert
Psych: Calm
Data Reviewed
-
Diagnostic Radiology: Image personally visualized and interpreted and Report Reviewed by me
Labs: Labs Reviewed by me
[2024-08-16 12:36] VITALS: BP 133/70; PULSE 96; O2SAT 93
[2024-08-16 15:00] VITALS: BP 125/70
--- NOTE | 2024-08-16 15:12 | CM ---
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 Per Admissions at [facility], pt ambulates with a SPC, is assisted with showering and lower body dressing/set up required.
Plan: Return to [facility] when medically stable.
[2024-08-16] MEDS: TOPROL XL 50 MG PO (17:48)
[2024-08-16] MEDS: MELATONIN 10 MG PO (22:24)
[2024-08-16] MEDS: FLOMAX 0.4 MG PO (22:24)
[2024-08-16] MEDS: DESYREL 150 MG PO (22:24)
[2024-08-16] MEDS: LIPITOR 60 MG PO (22:24)
[2024-08-16] MEDS: XALATAN OPHTHALMIC SOLUTION 1 DROP BOTH EYES (22:24)
[2024-08-16 23:30] VITALS: BP 127/68
[2024-08-17] MEDS: ZOSYN 50 IV ×3 (05:28→17:05)
[2024-08-17] MEDS: VENTOLIN NEBULES 2.5 MG INH (06:46)
[2024-08-17] MEDS: SPIRIVA RESPIMAT 2.5 MCG 2 PUFF INH (06:47)
[2024-08-17] MEDS: STRIVERDI RESPIMAT 2 PUFF INH (06:47)
[2024-08-17 06:51] LABS: Hematocrit 37.6 % (39.0-52.0); Hemoglobin 12.4 g/dL (13.0-18.0); Mean Corpuscular Hgb 29.7 pg (27.0-31.0); Mean Corpuscular Volume 90.2 fL (80.0-94.0); Mean Platelet Volume 10.6 fL (7.4-10.4); Platelet Count 260 10^3/uL (130-400); Red Blood Cell Count 4.17 10^6/uL (4.70-6.10); Red Cell Dist. Width 13.6 % (11.5-14.5); White Blood Cell Count 8.8 10^3/uL (4.8-10.8)
[2024-08-17 07:00] VITALS: BP 121/70
[2024-08-17 07:15] LABS: Blood Urea Nitrogen 21 mg/dl (9-20); Calcium 8.9 mg/dl (8.4-10.2); Carbon Dioxide 25 mmol/L (22-30); Chloride 110 mmol/L (98-107); Estimated Creatinine Clearance 51 ml/min; Glucose 92 mg/dl (70-99); Sodium 141 mmol/L (135-145); eGFR 54.07
[2024-08-17 07:22] LABS: Potassium 3.8 mmol/L (3.5-5.1)
[2024-08-17] MEDS: ASPIR LOW (ENTERIC COATED) 81 MG PO ×2 (08:04→20:06)
[2024-08-17] MEDS: FOLVITE 1 MG PO (08:04)
[2024-08-17] MEDS: ABILIFY 2 MG PO (08:04)
[2024-08-17] MEDS: VITAMIN B-12 1000 MCG PO (08:04)
[2024-08-17] MEDS: VITAMIN B1 100 MG PO ×2 (08:05→20:06)
[2024-08-17] MEDS: LASIX 20 MG PO (08:05)
[2024-08-17] MEDS: NEURONTIN 300 MG PO ×2 (08:05→20:06)
[2024-08-17] MEDS: ELIQUIS 5 MG PO ×2 (08:05→20:06)
[2024-08-17] MEDS: PROSCAR 5 MG PO (08:05)
[2024-08-17] MEDS: WELLBUTRIN XL (24 hour extended release) 150 MG PO (08:05)
[2024-08-17] MEDS: NORVASC 5 MG PO (08:05)
--- NOTE | 2024-08-17 09:52 | W.PN.HOSP.TC ---
Today's Communication/Plan
-
Doing well. D/C tomorrow on po antibiotics if progress continues
Assessment / Plan
Assessment / Plan
68-year-old with past medical history of dementia, CKD, paroxysmal atrial fibrillation on anticoagulation, COPD not on home O2, hyperlipidemia, hypertension, BPH, history of chronic urinary tract infections, anxiety and depression, history of
alcohol dependence and alcohol induced dementia, chronic ongoing tobacco use; p/w increasing confusion from the care home.
According to care home staff and daughter, patient started having increasing confusion the day JUNIOR AUTOMATION ENGINEER, which was felt to be 2/2 UTI, however pt was unable to comply to provide a urine sample.
Daughter reported that about 1 week ago patient was in usual state of health but later that evening they noted that he had cold and cough.
A/P:
1. Acute metabolic encephalopathy possibly due to UTI +- CAP, in setting of underlying dementia
Complicated by Hypoactive delirium, resolved
Follow urine culture
Growing e-coli >100k
blood cultures x2 so far negative
Cont Zosyn
CXR noted suspected pneumonia in the bilateral lung bases.
SPL recc soft and bite size diet
VSE Oropharyngeal swallow WNL
Follow MRSA screen
COVID negative
Holding JUNIOR AUTOMATION ENGINEER tizanidine/clonazepam;
MS has improved, today awake and conversant
would DC tizanidine/clonazepam going forward
2. COPD, stable
Continue nebs
3. Paroxysmal Atrial fibrillation
Continue anticoagulation Eliquis 5 mg twice daily
Rate control with metoprolol
4. Dementia, complicated by anxiety/depression
Holding JUNIOR AUTOMATION ENGINEER tizanidine, clonazepam;
MS has improved
Continue Abilify
Continue bupropion
5. BPH - chronic
do Bladder scan for urinary retention as needed
Continue finasteride
Continue tamsulosin
6. Tobacco use - chronic
nicotine patch while in hospital
7. Prior ETOH use
continue thiamine, folate
DVT PPX - on apixaban
Code status - limited, DNI
Likely home tomorrow if progress continues
Anticipated Discharge: 24 - 48 hours
Subjective/Interval History
-
Date of Service: August 17, 2024
Feels better.
Objective Data
-
Labs:
Laboratory Results
08/17/24
06:41
WBC 8.8
Hgb 12.4 L
Hct 37.6 L
Plt Count 260
Sodium 141
Potassium 3.8
Chloride 110 H
Carbon Dioxide 25
BUN 21 H
Creatinine 1.4 H
Glucose 92
Calcium 8.9
Vital Signs:
Vital Signs
Temp Pulse Resp BP Pulse Ox
98.5 F 75 18 121/70 92
08/17/24 07:00 08/17/24 08:05 08/17/24 07:00 08/17/24 08:05 08/17/24 07:00
I&O
08/16/24 08/17/24 08/18/24
06:59 06:59 06:59
Intake Total 600 / 600 880 / 880
Output Total 425 / 425 740 / 740
Balance 175 / 175 140 / 140
Review of Systems
-
History Source: Patient
All other systems: Reviewed and negative
Physical Exam
-
General: Well Developed, Well Nourished, No Apparent Distress, Comfortable and Obese
HEENT: Normocephalic, Nose Appears Normal and Ears Appear Normal
Respiratory: Clear to Auscultation
Cardiac: Regular Rhythm and S1/S2
GI: Soft, Nontender and Nondistended
Musculoskeletal: No Clubbing and No Cyanosis
Skin: Warm and Dry
Neuro: Awake, Alert and Oriented
Psych: Calm
Data Reviewed
-
Labs: Labs Reviewed by me
[2024-08-17] MEDS: VENTOLIN NEBULES INH (11:04)
--- NOTE | 2024-08-17 12:35 | CM ---
Patient chart reviewed
Resides at [facility]
Referral entered in [facility]
PLAN: Return to [facility] when medically stable
--- NOTE | 2024-08-17 13:11 | PTCARENOTE ---
Pt noted to have R forearm IV infiltrated after Zosyn infusion despite flushing prior to infusion. IV team notified and was able to assess. IV removed and R arm elevated on a pillow. Pt reports no pain or discomfort at this time. Plan of care
ongoing.
[2024-08-17 15:00] VITALS: BP 126/65
[2024-08-17] MEDS: TOPROL XL 50 MG PO (17:05)
[2024-08-17] MEDS: ULTRAM 50 MG PO (20:16)
[2024-08-17] MEDS: FLOMAX 0.4 MG PO (22:20)
[2024-08-17] MEDS: DESYREL 150 MG PO (22:20)
[2024-08-17] MEDS: MELATONIN 10 MG PO (22:20)
[2024-08-17] MEDS: LIPITOR 60 MG PO (22:20)
[2024-08-17] MEDS: XALATAN OPHTHALMIC SOLUTION 1 DROP BOTH EYES (22:21)
[2024-08-17 23:38] VITALS: BP 125/73
[2024-08-18] MEDS: ZOSYN 50 IV ×4 (00:51→17:15)
[2024-08-18 05:55] LABS: Hematocrit 38.7 % (39.0-52.0); Hemoglobin 12.7 g/dL (13.0-18.0); Mean Corp Hgb Conc. 32.8 g/dL (33.0-37.0); Mean Corpuscular Hgb 29.9 pg (27.0-31.0); Mean Corpuscular Volume 91.1 fL (80.0-94.0); Mean Platelet Volume 10.8 fL (7.4-10.4); Platelet Count 268 10^3/uL (130-400); Red Blood Cell Count 4.25 10^6/uL (4.70-6.10); Red Cell Dist. Width 13.5 % (11.5-14.5); White Blood Cell Count 7.7 10^3/uL (4.8-10.8)
[2024-08-18 06:27] LABS: Blood Urea Nitrogen 20 mg/dl (9-20); Carbon Dioxide 26 mmol/L (22-30); Chloride 108 mmol/L (98-107); Estimated Creatinine Clearance 51 ml/min; Glucose 82 mg/dl (70-99); Sodium 141 mmol/L (135-145); eGFR 54.07
[2024-08-18 07:00] VITALS: BP 126/72
[2024-08-18] MEDS: STRIVERDI RESPIMAT 2 PUFF INH (07:32)
[2024-08-18] MEDS: SPIRIVA RESPIMAT 2.5 MCG 2 PUFF INH (07:32)
[2024-08-18] MEDS: LASIX 20 MG PO (08:26)
[2024-08-18] MEDS: FOLVITE 1 MG PO (08:26)
[2024-08-18] MEDS: ELIQUIS 5 MG PO ×2 (08:26→20:31)
[2024-08-18] MEDS: PROSCAR 5 MG PO (08:26)
[2024-08-18] MEDS: NEURONTIN 300 MG PO ×2 (08:26→20:31)
[2024-08-18] MEDS: VITAMIN B-12 1000 MCG PO (08:26)
[2024-08-18] MEDS: ASPIR LOW (ENTERIC COATED) 81 MG PO ×2 (08:26→20:31)
[2024-08-18] MEDS: WELLBUTRIN XL (24 hour extended release) 150 MG PO (08:26)
[2024-08-18] MEDS: ABILIFY 2 MG PO (08:26)
[2024-08-18] MEDS: VITAMIN B1 100 MG PO ×2 (08:26→20:31)
[2024-08-18] MEDS: NORVASC 5 MG PO (08:27)
[2024-08-18] MEDS: ULTRAM 50 MG PO (08:34)
--- NOTE | 2024-08-18 09:57 | W.PN.HOSP.TC ---
Today's Communication/Plan
-
Keep an eye on stool output. If doing well, hopefully discharged tomorrow.
Assessment / Plan
Assessment / Plan
68-year-old with past medical history of dementia, CKD, paroxysmal atrial fibrillation on anticoagulation, COPD not on home O2, hyperlipidemia, hypertension, BPH, history of chronic urinary tract infections, anxiety and depression, history of
alcohol dependence and alcohol induced dementia, chronic ongoing tobacco use; p/w increasing confusion from the retirement.
According to retirement staff and daughter, patient started having increasing confusion the day MAKEUP ARTIST, which was felt to be 2/2 UTI, however pt was unable to comply to provide a urine sample.
Daughter reported that about 1 week ago patient was in usual state of health but later that evening they noted that he had cold and cough.
A/P:
1. Acute metabolic encephalopathy possibly due to UTI +- CAP, in setting of underlying dementia
Complicated by Hypoactive delirium, resolved
Follow urine culture
Growing esbl e-coli >100k sensitive to zosyn, day 4 of abx
blood cultures x2 so far negative
Cont Zosyn for minimum of 5 days
CXR noted suspected pneumonia in the bilateral lung bases.
SPL recc soft and bite size diet
VSE Oropharyngeal swallow WNL
Follow MRSA screen
COVID negative
Holding MAKEUP ARTIST tizanidine/clonazepam;
MS has improved, today awake and conversant
would DC tizanidine/clonazepam going forward
If otherwise doing well, ok to send back to retirement tomorrow
2. COPD, stable
Continue nebs
3. Paroxysmal Atrial fibrillation
Continue anticoagulation Eliquis 5 mg twice daily
Rate control with metoprolol
4. Dementia, complicated by anxiety/depression
Holding MAKEUP ARTIST tizanidine, clonazepam;
MS has improved
Continue Abilify
Continue bupropion
5. BPH - chronic
do Bladder scan for urinary retention as needed
Continue finasteride
Continue tamsulosin
6. Tobacco use - chronic
nicotine patch while in hospital
7. Prior ETOH use
continue thiamine, folate
8. Loose stool. No fever, no elevation of WBC.
Follow
If worsening, check stool for c-diff
DVT PPX - on apixaban
Code status - limited, DNI
Likely home 6/2 if progress continues
Anticipated Discharge: 24 - 48 hours
Subjective/Interval History
-
Date of Service: August 18, 2024
has 'upset stomach' and loose stool
Objective Data
-
Labs:
Laboratory Results
08/18/24
04:31
WBC 7.7
Hgb 12.7 L
Hct 38.7 L
Plt Count 268
Sodium 141
Potassium 4.0
Chloride 108 H
Carbon Dioxide 26
BUN 20
Creatinine 1.4 H
Glucose 82
Calcium 9.0
Vital Signs:
Vital Signs
Temp Pulse Resp BP Pulse Ox
97.6 F 73 16 126/72 92
08/18/24 07:00 08/18/24 08:26 08/18/24 07:37 08/18/24 08:26 08/18/24 07:37
I&O
08/17/24 08/18/24 08/19/24
06:59 06:59 06:59
Intake Total 880 / 880 1200 / 1200
Output Total 740 / 740 1100 / 1100
Balance 140 / 140 100 / 100
Review of Systems
-
History Source: Patient
All other systems: Reviewed and negative
Abdomen/GI: Reports Nausea and Diarrhea
Physical Exam
-
General: Well Developed, Well Nourished, No Apparent Distress, Comfortable and Obese
HEENT: Nose Appears Normal and Ears Appear Normal
Respiratory: Clear to Auscultation
Cardiac: Regular Rhythm and S1/S2
GI: Soft, Nontender and Nondistended
Musculoskeletal: No Clubbing and No Cyanosis
Skin: Warm and Dry
Neuro: Awake, Alert and Oriented
Psych: Calm
Data Reviewed
-
Labs: Labs Reviewed by me
--- NOTE | 2024-08-18 10:26 | CM ---
spoke with hospitalist - dc tomorrow to [facility]
careport updated
spoke with Manan at [facility]
PLAN: Return to [facility]
Report #: [phone]
Fax #: [phone]
transportation forms on chart
[2024-08-18 15:00] VITALS: BP 124/78
[2024-08-18] MEDS: TOPROL XL 50 MG PO (17:16)
[2024-08-18] MEDS: DESYREL 150 MG PO (21:30)
[2024-08-18] MEDS: MELATONIN 10 MG PO (21:30)
[2024-08-18] MEDS: LIPITOR 60 MG PO (21:30)
[2024-08-18] MEDS: FLOMAX 0.4 MG PO (21:30)
[2024-08-18] MEDS: XALATAN OPHTHALMIC SOLUTION 1 DROP BOTH EYES (21:30)
[2024-08-18 23:00] VITALS: BP 110/65
[2024-08-19] MEDS: ZOSYN 50 IV ×3 (00:31→11:33)
--- NOTE | 2024-08-19 02:01 | PTCARENOTE ---
patient was offered hygiene and the supplies for hygiene, but the patient's preference was to do it in the morning.
[2024-08-19 06:22] LABS: Hematocrit 40.6 % (39.0-52.0); Hemoglobin 13.3 g/dL (13.0-18.0); Mean Corp Hgb Conc. 32.8 g/dL (33.0-37.0); Mean Corpuscular Hgb 29.6 pg (27.0-31.0); Mean Corpuscular Volume 90.2 fL (80.0-94.0); Mean Platelet Volume 10.5 fL (7.4-10.4); Platelet Count 296 10^3/uL (130-400); Red Cell Dist. Width 13.2 % (11.5-14.5); White Blood Cell Count 7.2 10^3/uL (4.8-10.8)
[2024-08-19 06:50] LABS: Blood Urea Nitrogen 18 mg/dl (9-20); Carbon Dioxide 26 mmol/L (22-30); Chloride 107 mmol/L (98-107); Estimated Creatinine Clearance 51 ml/min; Glucose 82 mg/dl (70-99); Potassium 3.9 mmol/L (3.5-5.1); Sodium 140 mmol/L (135-145); eGFR 54.07
[2024-08-19] MEDS: SPIRIVA RESPIMAT 2.5 MCG 2 PUFF INH (07:37)
[2024-08-19] MEDS: STRIVERDI RESPIMAT 2 PUFF INH (07:37)
[2024-08-19 07:54] VITALS: BP 118/60
[2024-08-19] MEDS: LASIX 20 MG PO (08:24)
[2024-08-19] MEDS: NORVASC 5 MG PO (08:24)
[2024-08-19] MEDS: WELLBUTRIN XL (24 hour extended release) 150 MG PO (08:24)
[2024-08-19] MEDS: VITAMIN B1 100 MG PO (08:24)
[2024-08-19] MEDS: ASPIR LOW (ENTERIC COATED) 81 MG PO (08:24)
[2024-08-19] MEDS: ABILIFY 2 MG PO (08:24)
[2024-08-19] MEDS: NEURONTIN 300 MG PO (08:24)
[2024-08-19] MEDS: PROSCAR 5 MG PO (08:25)
[2024-08-19] MEDS: ELIQUIS 5 MG PO (08:25)
[2024-08-19] MEDS: FOLVITE 1 MG PO (08:25)
[2024-08-19] MEDS: VITAMIN B-12 1000 MCG PO (08:25)
[2024-08-19] MEDS: ULTRAM 50 MG PO (11:32)
--- NOTE | 2024-08-19 12:49 | W.DCSUMMARY ---
Discharge Summary
Discharge Data
Date of Admission: 08/14/24
Date of Discharge: 08/19/24
Total time spent discharging patient (in min): 50
-
Pending Results: No
Hospital Course
Mr. Duron is a 68-year-old male with medical history of dementia (alcohol-induced), A-fib (on Eliquis), COPD, hypertension, and CKD stage IIIa who presented from his detention with increasing confusion. He was found to have a urinary tract
infection and pneumonia and has been treated for both. His home tizanidine and clonazepam have also been held with subsequent improvement in his mental status. His urine cultures grew ESBL E. coli sensitive to Zosyn. He completed 5 days of
antibiotics with Zosyn. He will be discharged back to his long-term care facility. His tizanidine and clonazepam will continue to be held.
General: No Apparent Distress, Comfortable and Conversant
HEENT: NormoCephalic, Moist mucous membranes, Atraumatic
Respiratory: Clear and Non Labored Respirations
Cardiac: S1/S2 and Regular Rhythm; No Rub or Gallop
GI: Soft, Non Tender, Non Distended and Normal Bowel Sounds
Musculoskeletal: No Edema, no deformity
: NO Anaya
Neuro: Awake, Alert, Nonfocal/grossly intact
Psych: Calm and cooperative
Discharge Plan
-
Patient Disposition: Longterm/SNF
Discharge Diagnosis/Procedures: Acute metabolic encephalopathy
Condition: Fair
Diet: As tolerated and Other diet
Additional Diets: soft and bite size diet
Activity Restrictions/Additional Instructions:
Mr. Duron is a 68-year-old male with medical history of dementia (alcohol-induced), A-fib (on Eliquis), COPD, hypertension, and CKD stage IIIa who presented from his detention with increasing confusion. He was found to have a urinary tract
infection and pneumonia and has been treated for both. His home tizanidine and clonazepam have also been held with subsequent improvement in his mental status. His urine cultures grew ESBL E. coli sensitive to Zosyn. He completed 5 days of
antibiotics with Zosyn. He will be discharged back to his long-term care facility. His tizanidine and clonazepam will continue to be held.
Referrals:
UNKNOWN - PT DOES,NOT KNOW [Family Provider]
Additional Discharge Medication Instructions: Stop tizanidine and clonazepam going forward
Prescriptions:
Continued
umeclidinium-vilanterol [Anoro Ellipta] 1 EACH blister with device
1 puff inhalation R DAILY
acetaminophen [Tylenol] 325 mg Tablet
650 mg PO Q4HPRN MDD 3000mg/day PRN (Reason: mild pain/temp>101F)
lidocaine 4 % Adhesive Patch,Medicated
1 patch TOPICAL DAILYPRN PRN (Reason: right shoulder/low back)
trazodone 50 mg Tablet
175 mg PO HS
lidocaine 4 % Cream
1 applic TOPICAL TIDPRN PRN (Reason: right calf)
loperamide 2 mg Tablet
2 mg PO Q6HPRN PRN (Reason: diarrhea)
aspirin 81 mg Tablet,Delayed Release (Dr/Ec)
81 mg PO BID
magnesium hydroxide [Milk of Magnesia] 400 mg/5 mL Suspension
2,400 mg PO [id number] PRN (Reason: if no bm on 3rd day)
tamsulosin [Flomax] 0.4 mg Capsule
0.4 mg PO HS
bisacodyl [Dulcolax (bisacodyl)] 10 mg Suppository
10 mg RI DAILYPRN PRN (Reason: if no after mom)
Fleet Enema 19-7 gram/118 mL Enema
118 ml RI DAILYPRN PRN (Reason: if no bm after dulcalax)
gabapentin 300 mg Capsule
300 mg PO BID
albuterol sulfate 90 mcg/actuation Hfa Aerosol Inhaler
2 puff INHALATION R Q4HPRN PRN (Reason: wheezing/SOB)
fluticasone propionate 50 mcg/actuation Tenstrike,Suspension
1 spray INTRANASAL DAILY
finasteride 5 mg Tablet
5 mg PO DAILY
Icy Hot (menthol) 5 % Adhesive Patch,Medicated
1 patch TOPICAL DAILY
melatonin 10 mg Tablet
10 mg PO HS
Eliquis 5 mg Tablet
5 mg PO BID MDD hold for s/s bleeding
metoprolol succinate 50 MG tablet extended release 24 hr
50 mg PO QPM
tramadol 50 MG tablet
50 mg PO Q8HPRN PRN (Reason: moderate pain)
cyanocobalamin (vitamin B-12) 1,000 MCG tablet
1,000 mcg PO DAILY
thiamine HCl (vitamin B1) 100 MG tablet
100 mg PO BID
amlodipine 5 MG tablet
5 mg PO DAILY
folic acid 1 MG tablet
1 mg PO DAILY
atorvastatin 20 mg tablet
60 mg PO HS
aripiprazole 5 mg tablet
5 mg PO DAILY
bupropion HCl 150 mg tablet extended release 24 hr
150 mg PO DAILY
dextromethorphan-guaifenesin 10-100 mg/5 mL Syrup
10 ml PO Q4HPRN PRN (Reason: cough)
furosemide 20 mg tablet
20 mg PO DAILY
Lumigan 0.01 % drops
1 drp BOTH EYES HS
Discontinued
tizanidine 2 mg Tablet
2 mg PO BID
clonazepam 0.5 mg tablet
0.5 mg PO DAILY
Rx Instructions:
filled 07/15/24 [facility]
tramadol 50 mg tablet
50 mg PO BID
guaifenesin 100 mg/5 mL Liquid
200 mg PO Q4HPRN PRN (Reason: cough)
Discharge Orders:
Discharge Patient (As Directed); Ordered 08/19/24
Ordered By: Lico Sloan
Discharge Date and Time
Print Language: HONDURAN
[2024-08-19 13:14] VITALS: BP 105/76; BP 125/66; PULSE 69; O2SAT 95
--- NOTE | 2024-08-19 14:10 | CM ---
Pt cleared for discharge back to [facility] today via ambulance at 3PM today.
[facility] Liaison (Aldo) notified of transport time.
[facility]
Report #: [phone]
Fax #: [phone]
[2024-08-19 14:27] VITALS: BP 124/69
[2024-08-19 15:37] VITALS: BP 112/65
== END 2024-08-19 16:47 | DRG 70 ==
LOC: 3 WEST ACU 20:08
PROVIDERS: Internal Medicine; Physician Assistant; ADMITTING PHYSICIAN Internal Medicine; ATTENDING PHYSICIAN Internal Medicine; EMERGENCY PHYSICIAN Emergency Medicine
DX: G93.41 Metabolic encephalopathy (principal); J18.9 Pneumonia, unspecified organism; N39.0 Urinary tract infection, site not specified; J44.0 Chronic obstructive pulmonary disease with (acute) lower respiratory infection; F10.27 Alcohol dependence with alcohol-induced persisting dementia; F17.200 Nicotine dependence, unspecified, uncomplicated; Z11.52 Encounter for screening for COVID-19; I48.0 Paroxysmal atrial fibrillation
CPT/HCPCS: 71045; 74230; 80048; 80053; 81003; 81015; 83605; 83735; 85025; 85027; 87040; 87070; 87086; 87088; 87186; 87811; 92610; 92611; 93005; 94640; 96374; 97163; 97530; 99285; 99406

== ENCOUNTER 2024-09-13 15:33 | Inpatient (IN) | payer MEDICARE, OTHER, SELFPAY ==
[2024-09-13] VITALS (7 sets, daily range): BP systolic 95–110; BP diastolic 46–69; BMI 30.5; BMI 35.3; BMI 36.0
[2024-09-13 12:21] LABS: Hematocrit 41.2 % (39.0-52.0); Hemoglobin 13.4 g/dL (13.0-18.0); Mean Corp Hgb Conc. 32.5 g/dL (33.0-37.0); Mean Corpuscular Volume 91.2 fL (80.0-94.0); Nucleated Red Blood Cells % 0 % (-); Platelet Count 198 10^3/uL (130-400); Red Cell Dist. Width 14.0 % (11.5-14.5)
[2024-09-13 12:36] LABS: Urine Character Slightly Cloudy (Clear)
[2024-09-13 12:38] LABS: COVID-19 Antigen Negative (Negative)
[2024-09-13 12:45] LABS: ALT (SGPT) 17 U/L (0-50); AST (SGOT) 15 U/L (17-59); Albumin 3.8 g/dl (3.5-5.0); Alkaline Phosphatase 85 U/L (38-126); Blood Urea Nitrogen 23 mg/dl (9-20); Calcium 9.2 mg/dl (8.4-10.2); Carbon Dioxide 26 mmol/L (22-30); Chloride 103 mmol/L (98-107); Estimated Creatinine Clearance 40 ml/min; Glucose 124 mg/dl (70-99); Potassium 4.1 mmol/L (3.5-5.1); Sodium 138 mmol/L (135-145); Total Protein 6.3 g/dl (6.3-8.2); eGFR 37.25
--- NOTE | 2024-09-13 13:04 | ED.GENMED ---
History of Present Illness
General
Chief Complaint: Fever
Source: patient and correction records
Exam Limitations: none
Time Seen by Provider: 09/13/24 12:20
Nursing documentation reviewed up to this point in time: agreed with
History of Present Illness
History of Present Illness:
69-year-old male with history of dementia, COPD, chronic cough, HTN, HLD, PA, A-fib on Eliquis, GERD, chronic renal failure, UTIs CKD stage III AA, anxiety presents from the correction for fever. Patient is currently experiencing chills, he
states he is having no chest pain or trouble breathing, denies abdominal pain, states he has low back pain and this is chronic. He denies nausea or vomiting or diarrhea.
Past History
Past History
ED Past Medical History: Arrthythmia (Paroxysmal atrial fibrillation), CAD, COPD, HTN, Hypercholesterolemia, PA (February 2017), Other (Depression, anemia, tobacco dependence) and Other
ED Past Surgical History: Cardiac (PTCA with stent) and Urological (Right nephrectomy June 2017)
Social History
Tobacco: Smoker
Alcohol: Chronic alcoholic
Drug: None
Personal:
Living: with family (with brother)
Employment: Retired
Family History
Family History: Other (No significant)
Review of Systems
Review of Systems
Allergies reviewed?: Yes
All Other Systems: ROS reviewed and negative except as documented in HPI and ROS
Constitutional: Reports fever and chills
Respiratory: Reports cough; Denies trouble breathing
Cardiac: Denies chest pain
ABD/GI: Denies abdominal pain, nausea, vomiting or diarrhea
Phy Exam
Physical Exam
Physical Exam:
GENERAL: No acute distress. A&Ox2
CONSTITUTIONAL: 102.9 po
EYES: clear, conjunctivae normal
ENMT: Dry mucus membranes, Pharynx nl
RESPIRATORY: Regular respirations, nonlabored, lungs clear. Occasional cough
CARDIOVASCULAR: Regular rate and rhythm, no murmurs, no rubs.
GI: Soft, nontender, normal BS
MUSCULOSKELETAL: Moves with ease. Well perfused. No edema
SKIN: Warm, dry, pink
PSYCH: Normal mood and affect. Well kept, interactive and appropriate
NEUROLOGIC: Awake, alert and oriented. No focal neurological deficits
Course
Orders/Labs/Results
Orders:
Orders
09/13/24 Breakfast
Sodium, 2 Gram
At Your Request: Full Participation
09/13/24 12:04
Electrocardiogram (*1) Urgent
Reason for Study: Other
Other Reason for Exam: Possible Sepsis
Cardiac Monitoring- Treatment ONCE
IV Insert/Care/Rem.- Treatment PRN
Straight cath- Treatment ONCE
09/13/24 12:05
EKG- Treatment ONCE
09/13/24 12:08
Complete Blood Count/With Diff Urgent
Comprehensive Metabolic Panel Urgent
Blood Culture Q20M
[place] Source: Blood/Venous
Specimen Description:
Comment: Urgent from separate sites. If patient screens positive for possible sepsis
Blood Culture Q20M
[place] Source: Blood/Venous
Specimen Description:
Comment: Urgent from separate sites. If patient screens positive for possible sepsis
Influenza A+B Rapid Molecular Urgent
[place] Source: Nasal Swab
Specimen Description:
09/13/24 12:09
COVID-19 Antigen Urgent
Source: Nasal Swab
Lactic Acid Q4H
Comment: ON ICE, CANCEL 2ND ORDER IF FIRST LACTIC ACID LEVEL <2
Urinalysis Reflex To Culture Urgent
Date Specimen was Collected: 09/13/24
Time Specimen was Collected: 12:05
Urine Microscopic Reflex Cult Urgent
Urine Culture Urgent
[place] Source: U
Specimen Description:
Date Specimen was Collected: 09/13/24
Time Specimen was Collected: 12:05
09/13/24 12:20
CR Chest - 2 Views Urgent
Comment:
Reason For Exam: hypoxia, fever
09/13/24 13:07
Acetaminophen [Tylenol] 1,000 mg PO NOW STA
09/13/24 13:09
0.9% Sodium Chloride 1000 ml [Nss] 2,100 ml IV NOW STA
09/13/24 13:13
Piperacillin/Tazo 3.375 Gram [Zosyn] 3.375 gram in 50 ml IV NOW
09/13/24 14:59
Admit/Transfer Patient As Directed
Co-Sign Provider:
Level of Care: Inpatient admission
Assign to:: Telemetry
Physician / Group: Chelsae
Diagnosis: Sepsis
Reason for Telemetry: Arrhythmia
Date to Stop Telemetry: 09/16/24
Time to Stop Telemetry: 11:00
Reason for Hospitalization: IV abx
Expected length of stay greater than two midnights?: Yes
ELOS- Estimated Length of Stay in days: 3
I certify the patient meets the requirements for IP care: Yes
PRN Pain Medication Management As Directed
May give lesser potent ordered pain med per pt: Yes
preference::
Protocol:: Medication orders for pain may be administered in a
manner that supports deferring to patient preference
when the pt is:
- Requesting an ordered lesser potent pain medication.
Least to most potent pain medications are defined
as: acetaminophen < NSAID < tramadol < opioids
(morphine, oxycodone, hydromorphone).
- Requesting a lesser dose of the same medication IF
ORDERED.
- Requesting a less intrusive route of administration
if both routes are prescribed by the provider (PO <
IV).
09/13/24 15:04
Code Status As Directed
Resuscitation Status: Limited DNR
Limited DNR: -No intubation
09/13/24 15:30
0.9% Sodium Chloride 1000 ml [Nss] 1,000 ml IV 60 mls/hr
09/13/24 16:56
Acetaminophen [Tylenol] 650 mg PO Q4HPRN PRN mild pain/temp>101F
Ipratropium/Albuterol Sulfate [Duoneb] 3 ml INH R QID
Tramadol HCl [Ultram] 50 mg PO Q8HPRN PRN moderate/severe pain moderate/severe pain
09/13/24 16:56
Activity As Directed
Activity Level: Out of Bed- Chair
Vital Signs As Directed
Frequency: Per unit guidelines
Weight As Directed
Frequency: Daily
09/13/24 18:00
Metoprolol Xl [Toprol Xl] 50 mg PO QPM
09/13/24 20:00
Apixaban [Eliquis] 5 mg PO Q12
Aspirin Low Dose EC [Aspir Low (Enteric Coated)] 81 mg PO BID
Gabapentin [Neurontin] 300 mg PO BID
Piperacillin/Tazo 3.375 Gram [Zosyn] 3.375 gram in 50 ml IV Q6H
09/13/24 22:00
Atorvastatin [Lipitor] 20 mg PO HS
Atorvastatin [Lipitor] 40 mg PO HS
Melatonin 10 mg PO HS
Tamsulosin [Flomax] 0.4 mg PO HS
Trazodone [Desyrel] 175 mg PO HS
09/14/24 06:00
Basic Metabolic Panel IN AM
Complete Blood Count/No Diff IN AM
09/14/24 08:00
ARIPiprazole [Abilify] 5 mg PO DAILY
Amlodipine [Norvasc] 5 mg PO DAILY
Bupropion(24Hr)Extended Releas [WELLBUTRIN XL (24 hour extended release)] 150 mg PO DAILY
Clonazepam [Klonopin] 0.5 mg PO DAILY
Finasteride [Proscar] 5 mg PO DAILY
09/16/24 11:00
DC Protocol for Telemetry ONCE
Abnormal Lab Results
09/13/24 09/13/24
12:08 12:09
WBC 15.0 H 10^3/uL
(4.8-10.8)
RBC 4.52 L 10^6/uL
(4.70-6.10)
MCHC 32.5 L g/dL
(33.0-37.0)
MPV 10.9 H fL
(7.4-10.4)
Abs Immat Gran (auto) 0.1 H 10^3/uL
(0-0.05)
Absolute Neuts (auto) 12.4 H 10^3/uL
(1.4-6.5)
Absolute Monos (auto) 1.2 H 10^3/uL
(0.1-0.6)
Neutrophils % 82.3 H %
(42.2-75.2)
Lymphocytes % 8.5 L %
(20.5-51.1)
BUN 23 H mg/dl
(9-20)
Creatinine 1.9 H mg/dL
(0.7-1.3)
Glucose 124 H mg/dl
(70-99)
AST 15 L U/L
(17-59)
Ur Occult Blood Reflex 4+ A
(Negative)
Urine Nitrite (Reflex) Positive A
(Negative)
Leukocyte Esterase Rfl 3+ A
(Negative)
Urine RBC 50-60 A /HPF
(0-2)
Urine WBC (Reflex) 16-20 A /HPF
(0-5)
Urine Bacteria (Reflex) Few A
(Negative)
Urine Albumin (Reflex) 2+ A
(Neg - Trace)
09/13/24 12:08
09/13/24 12:08
Vital Signs
Initial and Last Documented VS:
Initial Vital Signs
BP
108/46
09/13/24 12:00
Last Documented Vital Signs
Temp Pulse Resp BP Pulse Ox
98.9 F 80 18 110/69 97
09/13/24 19:46 09/13/24 19:46 09/13/24 19:46 09/13/24 19:46 09/13/24 19:46
MDM/Problems Addressed
Differential Diagnosis Includes:
Sepsis, SIRS, UTI, PNA
MDM/Problems Addressed:
69-year-old male with history of dementia, COPD, chronic cough, HTN, HLD, PA, A-fib on Eliquis, GERD, chronic renal failure, UTIs CKD stage III AA, anxiety presents from the correction for fever. Patient is currently experiencing chills, he
states he is having no chest pain or trouble breathing, denies abdominal pain, states he has low back pain and this is chronic. He denies nausea or vomiting or diarrhea.
Temperature 102.7 p.o. for this examiner patient has shaking chills
EKG Sinus w frequent PVCs Rate 84
CBC: WBC 15.0 with a shift
CMP: BUN/creat 23/1.9
Admitted 08/14-08/19/24 for Hx ESBL e. coli sensitive and treated with Zosyn
CXR: NAD
1:50 p.m.
Plan: Admit: Sepsis: Acute on chronic renal failure
Blood and urine cultures pending.
Hospitalist notified of admission
*Pulse Oximetry
SaO2: 93
Nasal Cannula flow liters per minute: 3
Oxygen Mode of Delivery: Room air
Patient hypoxic: yes
*EKG
EKG Intrepretation Date: 09/13/24
Interpretation: abnormal
Comparison EKG: no changes
Heart Rate: 84
Rate: normal
Rhythm: sinus and PVC's
[place]: normal axis
Interval: normal interval
QRS Pattern: normal QRS
Ischemia: no ischemia
*Critical Care Note
Total Time (30-74mins, 75-104mins- exclusive of procedures): Not Applicable
ED Attending Note
-
Portions of this chart may have been created with voice recognition software.� Occasional wrong word or��sound alike� substitutions may have occurred due to the inherent limitations of voice recognition software.
Discharge Plan
Departure
Patient Disposition: Admit
Date of Disposition: 09/13/24
Time of Disposition: 13:54
Admit to: Med/Surg
Presentation/result/management discussed w/ accepting MD/DO: Hospitalist
Condition: Fair
Discharge Problem:
SIRS (systemic inflammatory response syndrome), Acute on chronic kidney failure
Interventions
Interventions:
*Risk Screen - Suicide Last Done: 09/13/24 18:04
*General Assessment Last Done: 09/13/24 12:16
*Neglect/Abuse Screening Last Done: 09/13/24 12:16
*ED- Fall Risk Assessment Last Done: 09/13/24 12:16
*ED COVID-19 Vaccine History Last Done: 09/13/24 18:04
*Nursing Disposition Last Done: 09/13/24 17:06
ED- Neurological Assessment Last Done: 09/13/24 12:17
ED-Skin Assessment Last Done: 09/13/24 12:18
Discharge Date and Time
Discharge Date/Time: 09/13/24 17:06
[2024-09-13] MEDS: TYLENOL 1000 MG PO (13:24)
[2024-09-13] MEDS: ZOSYN 50 IV ×2 (13:25→19:21)
[2024-09-13] MEDS: NSS 2100 ML IV (13:25)
[2024-09-13 13:28] LABS: Urine White Cell 16-20 /HPF (0-5)
[2024-09-13 13:29] LABS: Urine Red Blood Cell 50-60 /HPF (0-2)
--- NOTE | 2024-09-13 14:07 | HPS.HSE ---
Family Physician
-
Family Physician: Servando Tidwell
Chief Complaint
-
Fever
History of Present Illness
Patient is a 69 y/o male past medical history of CAD, A-Fib, CKD, COPD and Dementia who presents with fever. Patient resides at a local nursing facility and was sent to the emergency department today with fever and chills. Patient's only
complaints is low back pain which he reports is more chronic. He is noted is have a slight cough, but denies shortness of breath. Patient reports feeling off and slightly confused. He denies abdominal pain, nausea, vomiting or diarrhea. He denies
urinary symptoms.
Medical History
Past Medical History
Past Medical History: Reports Other
Additional Past Medical History:
Coronary Artery Disease s/p Stent
Paroxysmal Atrial Fibrillation
Essential Hypertension
Hyperlipidemia
CKD Stage III
LLE DVT in Jan 2024
COPD
BPH
Dementia
Anxiety/Depression
Alcohol Use Disorder
Past Surgical History: Reports Other
Additional Past Surgical History:
Right Nephrectomy
Social History
Alcohol: Former
Living: Prison
Family History
Family History: Not pertinent
Allergies / Home Medications
Allergies reflects when Allergies were last updated in [employer].
Home Medications with original date entered in [employer]
Allergy/Medication List:
Allergies
Allergy/AdvReac Type Severity Reaction Status Date / Time
horse dander Allergy Unknown Verified 02/05/24 14:40
venom-honey bee Allergy STING-HIVES Verified 02/05/24 14:40
Home Medications
acetaminophen 325 mg tablet (Tylenol) 650 mg PO Q4HPRN PRN mild pain/temp>101F 02/05/24
albuterol sulfate 90 mcg/actuation aerosol inhaler 2 puff inhalation R Q4HPRN PRN wheezing/SOB 02/05/24
amlodipine 5 mg tablet 5 mg PO DAILY Blood Pressure 02/05/24
apixaban 5 mg tablet (Eliquis) 5 mg PO BID dvt 02/05/24
aspirin 81 mg tablet,delayed release 81 mg PO BID Blood Clot Prevention/Tx 02/05/24
bisacodyl 10 mg rectal suppository (Dulcolax (bisacodyl)) 10 mg MS DAILYPRN PRN if no after mom 02/05/24
cyanocobalamin (vitamin B-12) 1,000 mcg tablet 1,000 mcg PO DAILY Supplement 02/05/24
finasteride 5 mg tablet 5 mg PO DAILY BPH 02/05/24
fluticasone propionate 50 mcg/actuation nasal spray,suspension 1 spray intranasal DAILY Allergies 02/05/24
folic acid 1 mg tablet 1 mg PO DAILY Supplement 02/05/24
gabapentin 300 mg capsule 300 mg PO BID pain/neuropathy 02/05/24
lidocaine 4 % topical cream 1 applic topical TIDPRN PRN right calf 02/05/24
lidocaine 4 % topical patch 1 patch topical DAILYPRN PRN right shoulder/low back 02/05/24
loperamide 2 mg tablet 2 mg PO Q6HPRN PRN diarrhea 02/05/24
magnesium hydroxide 400 mg/5 mL oral suspension (Milk of Magnesia) 2,400 mg PO [id number] PRN if no bm on 3rd day 02/05/24
melatonin 10 mg tablet 10 mg PO HS Sleep 02/05/24
menthol 5 % topical patch (Icy Hot (menthol)) 1 patch topical DAILY mid-back pain 02/05/24
metoprolol succinate 50 mg tablet,extended release 24 hr 50 mg PO QPM Blood Pressure 02/05/24
sodium phosphates 19 gram-7 gram/118 mL enema (Fleet Enema) 118 ml MS DAILYPRN PRN if no bm after dulcalax 02/05/24
tamsulosin 0.4 mg capsule (Flomax) 0.4 mg PO HS BPH 02/05/24
thiamine HCl (vitamin B1) 100 mg tablet 100 mg PO BID Supplement 02/05/24
tramadol 50 mg tablet 50 mg PO Q8HPRN PRN moderate pain 02/05/24
trazodone 50 mg tablet 175 mg PO HS sleep 02/05/24
aripiprazole 5 mg tablet 5 mg PO DAILY visual hallucinations 08/15/24
atorvastatin 20 mg tablet 60 mg PO HS cholesterol 08/15/24
bupropion HCl 150 mg 24 hr tablet, extended release 150 mg PO DAILY Depression 08/15/24
furosemide 20 mg tablet 20 mg PO DAILY Fluid Retention/Swelling 08/15/24
atorvastatin 40 mg tablet 40 mg PO HS 09/13/24
bimatoprost 0.01 % eye drops 1 drp BOTH EYES HS 09/13/24
clonazepam 0.5 mg tablet (Klonopin) 0.5 mg PO DAILY 09/13/24
dextromethorphan-guaifenesin 10 mg-100 mg/5 mL oral liquid 10 ml PO Q4HPRN PRN cough 09/13/24
umeclidinium 62.5 mcg-vilanterol 25 mcg/actuation powdr for inhalation 1 inh inhalation R DAILY 09/13/24
Review of Systems
-
Unable to obtain full review of systems at this time due to: Dementia
Physical Exam
Vital Signs
Vital Signs
Temp Pulse Resp BP Pulse Ox
102.1 F H 89 23 108/46 93
09/13/24 13:34 09/13/24 13:30 09/13/24 13:30 09/13/24 12:06 09/13/24 13:05
Physical Exam
General: Well Developed and Well Nourished
HEENT: Anicteric and Moist mucous membranes
Respiratory: Clear, Non Labored Respirations and Other (Occasional Cough)
Cardiac: S1/S2 and Regular Rhythm; No Tachycardia
GI: Soft and Non Tender
Rectal: Deferred by Provider
Musculoskeletal: No Clubbing and No Cyanosis
Skin: Warm and Dry
Neuro: Awake, Alert, Oriented and Nonfocal/grossly intact
Psych: Calm
Laboratory Results
-
09/13/24 12:08
09/13/24 12:08
Laboratory Results
Lactic Acid Cancelled 09/13/24 16:15
Total Bilirubin 0.7 mg/dl (0.2-1.3) 09/13/24 12:08
AST 15 U/L (17-59) L 09/13/24 12:08
ALT 17 U/L (0-50) 09/13/24 12:08
Alkaline Phosphatase 85 U/L (38-126) 09/13/24 12:08
Chest X-Ray:
No radiographic evidence of acute cardiopulmonary abnormality.
Data Reviewed
-
Diagnostic Radiology: Report Reviewed by me
Lab Data: Labs Reviewed by me
Impression/Plan
-
Sepsis, suspect secondary to Urinary Tract Infection
-Reviewed prior culture data from July 2024 with ESBL E. coli
-Continue Zosyn
-Await urine and blood cultures
Acute Renal Insufficiency on CKD Stage III
-Hold Lasix
-Monitor creatinine closely
Coronary Artery Disease s/p Stent
-Continue aspirin
Paroxysmal Atrial Fibrillation
-Continue Eliquis for anticoagulation
-Continue metoprolol
Essential Hypertension
-Continue amlodipine and metoprolol with hold parameters
Hyperlipidemia
-Continue atorvastatin
COPD, no acute exacerbation
-Transition to DuoNeb during hospitalization
BPH
-Continue Finasteride and Tamsulosin
Dementia, complicated by Anxiety / Depression
-Monitor for mood/behavior changes during hospitalization
-Continue aripiprazole, bupropion and trazodone
-Continue clonazepam but hold for sedation
DVT proph: Eliquis
Code Status: Limited DNR, No Intubation
--- NOTE | 2024-09-13 15:33 | W.PN.UPDATE ---
Update Note
Progress Note Update
This is an addendum to H&P written by Aislinn Singh on 09/13/2024. Patient seen and examined independently with PA.
69-year-old male past medical history of CAD status post stent, COPD, paroxysmal atrial fibrillation on Eliquis, CHF, hypertension, hyperlipidemia, dementia, BPH, nicotine use, CKD, anxiety/depression, former alcohol use disorder, here with fever,
chronic back pain. Mild cough.
Recently admitted last month for ESBL E. coli treated with Zosyn.
Fever of 102. Leukocytosis. Urinalysis suggestive of UTI. Chest x-ray unremarkable.
Labs show EDWIN 1.9.
Patient with sepsis secondary to likely recurrent UTI with EDWIN. Patient given 2 L IV fluids. Check urine culture. Hold off further IV fluids given CHF history. Hold Lasix. Zosyn.
[2024-09-13] MEDS: DUONEB INH (16:58)
[2024-09-13] MEDS: TOPROL XL PO (18:41)
[2024-09-13] MEDS: NSS 1000 IV (18:44)
[2024-09-13] MEDS: DUONEB 3 ML INH (19:21)
[2024-09-13] MEDS: ELIQUIS 5 MG PO (19:21)
[2024-09-13] MEDS: ASPIR LOW (ENTERIC COATED) 81 MG PO (19:22)
[2024-09-13] MEDS: NEURONTIN 300 MG PO (19:22)
[2024-09-13] MEDS: MELATONIN 10 MG PO (21:02)
[2024-09-13] MEDS: LIPITOR 40 MG PO (21:02)
[2024-09-13] MEDS: LIPITOR 20 MG PO (21:02)
[2024-09-13] MEDS: TYLENOL 650 MG PO (21:02)
[2024-09-13] MEDS: FLOMAX 0.4 MG PO (21:02)
[2024-09-13] MEDS: DESYREL 150 MG PO (21:06)
[2024-09-13] MEDS: DESYREL 25 MG PO (21:07)
[2024-09-14] VITALS (8 sets, daily range): BP systolic 88–143; BP diastolic 36–76; PULSE 90; O2SAT 96; BMI 36.0
[2024-09-14] MEDS: ZOSYN 50 IV ×4 (01:18→20:38)
[2024-09-14] MEDS: NSS 500 IV (04:36)
--- NOTE | 2024-09-14 05:30 | PTCARENOTE ---
Patient`s BP at 0300 was 88/64. Patient is asymptomatic. RETAIL SPECIALIST made aware, order for IV bolus placed. See repeat BP.
[2024-09-14] MEDS: DUONEB 3 ML INH ×4 (07:58→19:07)
[2024-09-14 09:12] LABS: Hematocrit 36.6 % (39.0-52.0); Hemoglobin 11.8 g/dL (13.0-18.0); Mean Corp Hgb Conc. 32.2 g/dL (33.0-37.0); Mean Corpuscular Volume 91.5 fL (80.0-94.0); Platelet Count 157 10^3/uL (130-400); Red Cell Dist. Width 14.2 % (11.5-14.5)
[2024-09-14] MEDS: ELIQUIS 5 MG PO ×2 (09:14→20:37)
[2024-09-14] MEDS: ABILIFY 5 MG PO (09:14)
[2024-09-14] MEDS: NEURONTIN 300 MG PO ×2 (09:14→20:37)
[2024-09-14] MEDS: ASPIR LOW (ENTERIC COATED) 81 MG PO ×2 (09:14→20:37)
[2024-09-14] MEDS: PROSCAR 5 MG PO (09:14)
[2024-09-14] MEDS: WELLBUTRIN XL (24 hour extended release) 150 MG PO (09:15)
[2024-09-14] MEDS: KLONOPIN 0.5 MG PO (09:15)
[2024-09-14] MEDS: NORVASC PO (09:17)
[2024-09-14 09:44] LABS: Blood Urea Nitrogen 22 mg/dl (9-20); Calcium 7.9 mg/dl (8.4-10.2); Carbon Dioxide 24 mmol/L (22-30); Chloride 109 mmol/L (98-107); Estimated Creatinine Clearance 41 ml/min; Glucose 102 mg/dl (70-99); Potassium 4.0 mmol/L (3.5-5.1); Sodium 139 mmol/L (135-145); eGFR 42.57
--- NOTE | 2024-09-14 10:34 | W.PN.HOSP.TC ---
Today's Communication/Plan
-
cont zosyn
follow cultures
consider ID consult if ESBL isolated again
PT/OT
wean O2 to off if doesn't wear chronically
Assessment / Plan
Assessment / Plan
pt is a 69 year old male
Sepsis (POA)- suspect secondary to Urinary Tract Infection--Reviewed prior culture data from July 2024 with ESBL E. coli--Continue Zosyn--Await urine and blood cultures--consider ID consult if needed
Acute Renal Insufficiency on CKD Stage III--Hold Lasix--Monitor creatinine closely
acute hypoxemic resp insufficiency--on O2--unclear if wears at baseline
Coronary Artery Disease s/p Stent--Continue aspirin
Paroxysmal Atrial Fibrillation--Continue Eliquis for anticoagulation--Continue metoprolol
Essential Hypertension--Continue amlodipine and metoprolol with hold parameters
Hyperlipidemia--Continue atorvastatin
COPD, no acute exacerbation--Transition to DuoNeb during hospitalization
BPH--Continue Finasteride and Tamsulosin
Dementia, complicated by Anxiety/Depression--no mood issues or behaviors here--Continue aripiprazole, bupropion and trazodone--Continue clonazepam but hold for sedation
DVT proph: Eliquis
Code Status: Limited DNR, No Intubation
Anticipated Discharge: > 48 hours
Subjective/Interval History
-
Date of Service: September 14, 2024
pt hard of hearing and somewhat sleepy
Objective Data
-
Labs:
Laboratory Results
09/14/24
08:51
WBC 9.9
Hgb 11.8 L
Hct 36.6 L
Plt Count 157 D
Sodium 139
Potassium 4.0
Chloride 109 H
Carbon Dioxide 24
BUN 22 H
Creatinine 1.7 H
Glucose 102 H
Calcium 7.9 L
Vital Signs:
max temp for 24 hours
09/13/24
13:34
Temp 102.1 F H
Vital Signs
Temp Pulse Resp BP Pulse Ox
98.8 F 79 18 117/58 97
09/14/24 07:11 09/14/24 09:17 09/14/24 08:01 09/14/24 09:17 09/14/24 08:01
I&O
09/13/24 09/14/24 09/15/24
06:59 06:59 06:59
Intake Total 240 / 240
Balance 240 / 240
Review of Systems
-
All other systems: Reviewed and negative
Physical Exam
-
General: Well Developed and Well Nourished
HEENT: Normocephalic, Atraumatic and Oxygen
Respiratory: Clear to Auscultation; Negative Wheezes or Rhonchi
Cardiac: Regular Rhythm and S1/S2; Negative Murmur
GI: Soft, Nontender, Nondistended, Normal Bowel Sounds and Other (ventral wall hernia--nontender)
Musculoskeletal: No Clubbing, No Cyanosis and No Edema
Neuro: Negative Awake (sleepy)
Psych: Calm
--- NOTE | 2024-09-14 15:05 | CM ---
Initial assessment completed. Patient is a 69 y/o male past medical history of CAD, A-Fib, CKD, COPD and Dementia who presents with fever. On room air.
Patient is a LTC resident at [facility]. Recent admission (08/14-08/19) for complicated UTI. Patient ambulates w/ cane and is assisted w/ some ADLs.
PCP: Servando Tidwell
Pharmacy: [place], [place]
PT eval pending
Plan: Return to [facility] LTC when stable
[2024-09-14] MEDS: TOPROL XL 50 MG PO (16:29)
[2024-09-14] MEDS: TYLENOL 650 MG PO (20:56)
[2024-09-14] MEDS: DESYREL 25 MG PO (20:59)
[2024-09-14] MEDS: DESYREL 150 MG PO (20:59)
[2024-09-14] MEDS: MELATONIN 10 MG PO (21:00)
[2024-09-14] MEDS: LIPITOR 20 MG PO (21:00)
[2024-09-14] MEDS: LIPITOR 40 MG PO (21:00)
[2024-09-14] MEDS: FLOMAX 0.4 MG PO (21:00)
[2024-09-15] MEDS: ZOSYN 50 IV ×4 (02:53→21:04)
[2024-09-15 03:03] VITALS: BP 112/65
[2024-09-15 06:00] VITALS: BMI 35.7
[2024-09-15 07:07] LABS: Hematocrit 35.8 % (39.0-52.0); Hemoglobin 11.6 g/dL (13.0-18.0); Mean Corp Hgb Conc. 32.4 g/dL (33.0-37.0); Mean Corpuscular Volume 90.2 fL (80.0-94.0); Platelet Count 158 10^3/uL (130-400); Red Cell Dist. Width 14.3 % (11.5-14.5)
[2024-09-15 07:31] LABS: ALT (SGPT) 17 U/L (0-50); AST (SGOT) 19 U/L (17-59); Albumin 2.8 g/dl (3.5-5.0); Alkaline Phosphatase 80 U/L (38-126); Blood Urea Nitrogen 21 mg/dl (9-20); Calcium 8.4 mg/dl (8.4-10.2); Carbon Dioxide 24 mmol/L (22-30); Chloride 110 mmol/L (98-107); Estimated Creatinine Clearance 44 ml/min; Glucose 104 mg/dl (70-99); Magnesium 2.1 mg/dl (1.6-2.3); Potassium 3.6 mmol/L (3.5-5.1); Sodium 139 mmol/L (135-145); Total Protein 5.0 g/dl (6.3-8.2); eGFR 45.78
[2024-09-15 07:37] VITALS: BP 110/56
[2024-09-15] MEDS: DUONEB 3 ML INH ×4 (07:56→19:20)
[2024-09-15] MEDS: PROSCAR 5 MG PO (08:12)
[2024-09-15] MEDS: NORVASC 5 MG PO (08:12)
[2024-09-15] MEDS: NEURONTIN 300 MG PO ×2 (08:12→21:03)
[2024-09-15] MEDS: ASPIR LOW (ENTERIC COATED) 81 MG PO ×2 (08:12→21:03)
[2024-09-15] MEDS: WELLBUTRIN XL (24 hour extended release) 150 MG PO (08:12)
[2024-09-15] MEDS: ELIQUIS 5 MG PO ×2 (08:12→21:03)
[2024-09-15] MEDS: KLONOPIN 0.5 MG PO (08:12)
[2024-09-15] MEDS: ABILIFY 5 MG PO (08:12)
[2024-09-15 11:21] VITALS: BP 110/68
--- NOTE | 2024-09-15 12:24 | W.PN.HOSP.TC ---
Today's Communication/Plan
-
consult ID
Assessment / Plan
Assessment / Plan
pt is a 69 year old male
Sepsis (POA)- suspect secondary to ESBL E. coli UTI--Reviewed prior culture data from July 2024 with ESBL E. coli--Continue Zosyn, consider changing to ertapenem--will consult ID-- blood cultures negative--WBC count has improved from admission
Acute Renal Insufficiency on CKD Stage III--Holding Lasix--Monitor creatinine closely, improving--baseline ~ 1.4?
acute hypoxemic resp insufficiency--on O2--unclear if wears at baseline--wean as able
Coronary Artery Disease s/p Stent--Continue aspirin
Paroxysmal Atrial Fibrillation--Continue Eliquis for anticoagulation--Continue metoprolol
Essential Hypertension--Continue amlodipine and metoprolol with hold parameters
Hyperlipidemia--Continue atorvastatin
COPD, no acute exacerbation--Transition to DuoNeb during hospitalization
BPH--Continue Finasteride and Tamsulosin
Dementia, complicated by Anxiety/Depression--no mood issues or behaviors here--Continue aripiprazole, bupropion and trazodone--Continue clonazepam but hold for sedation
DVT proph: Eliquis
Code Status: Limited DNR, No Intubation
Anticipated Discharge: > 48 hours
Subjective/Interval History
-
Date of Service: September 15, 2024
pt sitting in the chair saying he feels lousy
Objective Data
-
Labs:
Laboratory Results
09/15/24
06:57
WBC 7.3
Hgb 11.6 L
Hct 35.8 L
Plt Count 158
Sodium 139
Potassium 3.6
Chloride 110 H
Carbon Dioxide 24
BUN 21 H
Creatinine 1.6 H
Glucose 104 H
Calcium 8.4
Total Bilirubin 0.6
AST 19
ALT 17
Alkaline Phosphatase 80
Vital Signs:
max temp for 24 hours
09/14/24
19:33
Temp 99.5 F
Vital Signs
Temp Pulse Resp BP Pulse Ox
98.6 F 79 16 110/68 95
09/15/24 11:21 09/15/24 11:39 09/15/24 11:39 09/15/24 11:21 09/15/24 11:39
I&O
09/14/24 09/15/24 09/16/24
06:59 06:59 06:59
Intake Total 240 / 240 580 / 580
Balance 240 / 240 580 / 580
Review of Systems
-
All other systems: Reviewed and negative
Physical Exam
-
General: Well Developed, Well Nourished and No Apparent Distress
HEENT: Normocephalic, Atraumatic and Oxygen
Respiratory: Clear to Auscultation; Negative Wheezes or Rhonchi
Cardiac: Regular Rhythm and S1/S2; Negative Murmur
GI: Soft, Nontender, Nondistended and Normal Bowel Sounds
Musculoskeletal: No Clubbing, No Cyanosis and No Edema
Neuro: Awake
Psych: Calm
[2024-09-15 15:27] VITALS: BP 126/67
[2024-09-15] MEDS: TOPROL XL 50 MG PO (17:44)
[2024-09-15 19:00] VITALS: BP 116/71
[2024-09-15] MEDS: FLOMAX 0.4 MG PO (21:04)
[2024-09-15] MEDS: DESYREL 25 MG PO (21:04)
[2024-09-15] MEDS: DESYREL 150 MG PO (21:04)
[2024-09-15] MEDS: MELATONIN 10 MG PO (21:05)
[2024-09-15] MEDS: LIPITOR 20 MG PO (21:05)
[2024-09-15] MEDS: LIPITOR 40 MG PO (21:05)
[2024-09-15 23:50] VITALS: BP 121/68
[2024-09-16] MEDS: ZOSYN 50 IV ×2 (02:51→08:42)
[2024-09-16 03:00] VITALS: BP 126/72
[2024-09-16 06:00] VITALS: BMI 35.9
[2024-09-16] MEDS: DUONEB 3 ML INH ×4 (07:32→19:49)
[2024-09-16 08:08] VITALS: BP 133/71
[2024-09-16] MEDS: NORVASC 5 MG PO (08:42)
[2024-09-16] MEDS: ABILIFY 5 MG PO (08:42)
[2024-09-16] MEDS: ASPIR LOW (ENTERIC COATED) 81 MG PO ×2 (08:43→21:00)
[2024-09-16] MEDS: PROSCAR 5 MG PO (08:43)
[2024-09-16] MEDS: NEURONTIN 300 MG PO ×2 (08:43→21:00)
[2024-09-16] MEDS: WELLBUTRIN XL (24 hour extended release) 150 MG PO (08:43)
[2024-09-16] MEDS: ELIQUIS 5 MG PO ×2 (08:43→21:00)
[2024-09-16] MEDS: KLONOPIN 0.5 MG PO (08:44)
[2024-09-16 09:15] LABS: Hematocrit 36.1 % (39.0-52.0); Hemoglobin 11.8 g/dL (13.0-18.0); Mean Corp Hgb Conc. 32.7 g/dL (33.0-37.0); Mean Corpuscular Volume 89.6 fL (80.0-94.0); Nucleated Red Blood Cells % 0 % (-); Platelet Count 183 10^3/uL (130-400); Red Cell Dist. Width 14.3 % (11.5-14.5)
[2024-09-16 10:07] LABS: Blood Urea Nitrogen 17 mg/dl (9-20); Calcium 9.0 mg/dl (8.4-10.2); Carbon Dioxide 22 mmol/L (22-30); Chloride 113 mmol/L (98-107); Estimated Creatinine Clearance 50 ml/min; Glucose 110 mg/dl (70-99); Potassium 3.7 mmol/L (3.5-5.1); Sodium 142 mmol/L (135-145); eGFR 53.74
--- NOTE | 2024-09-16 11:01 | CON.ID ---
Consultation
-
Date/Time Consultation Requested: September 15, 2024 1230
Date/Time Consultation Performed: September 16, 2024 1100
Requesting Provider: Dr. Priya Rothman
Performing Provider: Dr. Lise Lassiter
Reason for Consultation: ESBL UTI
Chief Complaint / Past History
Chief Complaint
Fever
History of Present Illness
69-year-old male with history of CAD, atrial fibrillation, CKD 3, right nephrectomy who presented from [facility] to the hospital on September 13 due to fever and decubitus mental status. ED temperature 102.1. White count of 15. UA positive nitrite, 3+
leukocyte esterase, 16-20 white blood cells. Urine culture grew ESBL E. coli. He is currently on Zosyn. Patient reports he did have chills with the fever at [facility]. He is feeling better now without further chills. He denies dysuria. He did have
urinary frequency now improved. No flank pain. No diarrhea.
Past History
Additional Past Medical History:
Essential Hypertension
Hyperlipidemia
CKD Stage III
Coronary Artery Disease s/p Stent
Paroxysmal Atrial Fibrillation
COPD
BPH
Dementia
Anxiety/Depression
hx Alcohol Use Disorder
LLE DVT in Jan 2024
Right nephrectomy due to benign mass
Allergy History:
horse dander Allergy (Verified 02/05/24 14:40)
Unknown
venom-honey bee Allergy (Verified 02/05/24 14:40)
STING-HIVES
Medications Reviewed: Yes
Current Antibiotics:
Zosyn day 4
Social History
Tobacco: Non-Smoker
Alcohol: Former
Drug: None
Living: Correction
Review of Systems
Review of Systems
HEENT: Negative Sinus Problems or Headache
Cardiovascular: Negative Chest Pain or Dyspnea
Respiratory: Negative Dyspnea or Cough
Gasteroenterology: Negative Nausea, Vomiting or Diarrhea
Genital / Urological: Negative Dysuria or Flank Pain
Neurological: Negative Dizziness
All systems: All other systems were reviewed and were negative
Vital Signs
Temp Pulse Resp BP Pulse Ox
98.2 F 70 18 133/71 95
09/16/24 08:08 09/16/24 08:42 09/16/24 08:08 09/16/24 08:42 09/16/24 08:08
Physical Exam
Physical Exam
Constitutional: No Acute Distress, Comfortable and Obese
Eyes: Sclera Anicteric
Cardiovascular: Regular Rate and S1/S2
Pulmonary: Clear
Gastrointestinal: Soft, Non Tender, Non Distended and Normal Bowel Sounds
Genito-Urinary: Negative CVA Tenderness
Extremities: Negative Edema
Neurological: Awake and Alert
Lab / Diagnostic Study Results
09/16/24 08:55
09/16/24 08:55
Abs Immat Gran (auto) 0.0 10^3/uL (0-0.05) 09/16/24 08:55
Absolute Neuts (auto) 3.3 10^3/uL (1.4-6.5) 09/16/24 08:55
Absolute Lymphs (auto) 1.1 10^3/uL (1.2-3.4) L 09/16/24 08:55
Absolute Monos (auto) 0.8 10^3/uL (0.1-0.6) H 09/16/24 08:55
Absolute Basos (auto) 0.1 10^3/uL (0-0.2) 09/16/24 08:55
Immature Gran % 0.4 % (0-0.5) 09/16/24 08:55
Neutrophils % 58.7 % (42.2-75.2) 09/16/24 08:55
Lymphocytes % 19.2 % (20.5-51.1) L 09/16/24 08:55
Monocytes % 14.7 % (1.7-9.3) H 09/16/24 08:55
Eosinophils % 5.9 % (0-6) 09/16/24 08:55
Basophils % 1.1 % (0-2) 09/16/24 08:55
Lactic Acid Cancelled 09/13/24 16:15
Ur Squamous Epith Cells 6-10 /LPF (Few) 09/13/24 12:09
Microbiology Results
Micro:
09/13/24 12:08 Blood Culture - Preliminary
Blood/Venous No Growth in 48 hours- Final report to follow
09/13/24 12:08 Blood Culture - Preliminary
Blood/Venous No Growth in 48 hours- Final report to follow
09/13/24 12:09 Urine Culture - Final
Urine Escherichia coli - ESBL
09/14/24 01:28 MRSA Screen - Final
Nose No Methicillin Resistant Staphylococcus aureus isolated.
09/13/24 12:08 Influenza Types A & B (ROBB) - Final
Nasal Swab Negative for Influenza A & B, NAAT
Negative results must be combined with clinical observations
and patient history.
Nucleic Acid Amplification test (NAAT)performed on the
[employer] platform.
09/13/24 CXR No radiographic evidence of acute cardiopulmonary abnormality. Unchanged enlargement of the cardiac silhouette.
Assessment / Plan
# Symptomatic MDR ESBL-Ecoli UTI
# Fever resolved
# Leukocytosis resolved
- blood cx's neg to date.
- Can transition Zosyn (d4) to Ertapenem 1g IV q24 through 09/22.
- Infusion sheet submitted to architect manager.
-Place midline for abx at [facility].
# Conditions ENFORCEMENT MANAGER
Essential Hypertension
Hyperlipidemia
CKD Stage III
Coronary Artery Disease s/p Stent
Paroxysmal Atrial Fibrillation
COPD
BPH
Dementia
Anxiety/Depression
hx Alcohol Use Disorder
LLE DVT in Jan 2024
Right nephrectomy due to benign mass
[2024-09-16 11:43] VITALS: BP 120/71
[2024-09-16 13:33] VITALS: BP 132/73
[2024-09-16] MEDS: INVANZ 60 MG IV (13:42)
--- NOTE | 2024-09-16 14:14 | W.PN.HOSP.TC ---
Addendum entered and electronically signed by Priya Rothman MD 09/16/24 14:58:
I saw and evaluated the patient independently. I reviewed the resident�s note and agree with findings and plan as documented by Dr. Haddad.
GENERAL: well developed, well nourished, male in no apparent distress
HEENT: NC/AT
HEART: regular rate and rhythm, +S1, +S2
LUNGS : clear to auscultation bilaterally
ABDOM: soft, nontender, nondistended, + bowel sounds
EXT: no cyanosis, clubbing, or edema
NEUROLOGIC: grossly intact
Sepsis (POA)- suspect secondary to ESBL E. coli UTI--Reviewed prior culture data from July 2024 with ESBL E. coli--apprec ID, changing Zosyn to ertapenem--will need IV ABX through 09/22/24-- blood cultures negative--WBC count has improved from admission
Acute kidney injury on CKD Stage III--Holding Lasix--Monitor creatinine closely, improving (down from 1.9 to 1.4--baseline ~ 1.4?)
acute hypoxemic resp insufficiency--now off O2
Coronary Artery Disease s/p Stent--Continue aspirin
Paroxysmal Atrial Fibrillation--Continue Eliquis for anticoagulation--Continue metoprolol
Essential Hypertension--Continue amlodipine and metoprolol with hold parameters
Hyperlipidemia--Continue atorvastatin
COPD, no acute exacerbation--Transition to DuoNeb during hospitalization
BPH--Continue Finasteride and Tamsulosin
Dementia, complicated by Anxiety/Depression--no mood issues or behaviors here--Continue aripiprazole, bupropion and trazodone--Continue clonazepam but hold for sedation
DVT proph: Eliquis
Code Status: Limited DNR, No Intubation
hopeful d/c back to SNF tomorrow?
Original Note:
Today's Communication/Plan
-
* Transition to ertapenem per ID.
* Will need midline; coordinate with the LTC facility.
Assessment / Plan
Assessment / Plan
Sepsis secondary to ESBL E. coli UTI
- Recent ESBL UTI a month ago, treated with piperacillin+tazobactam.
- Hemodynamically stable, afebrile since admission, and blood work improving.
- Piperacillin+tazobactam this admission; transition to ertapenem per ID.
- Will need ertapenem through 09-22-24; place midline and will need to coordinate with LTC.
Acute renal injury on CKD Stage IIIa
- Secondary to sepsis most likely.
- Hold diuretics.
- Almost resolved?
Acute hypoxemic respiratory insufficiency, resolved
- Required 3L via NC on admission.
- Unclear if wears O2 at baseline.
- Off oxygen now.
Coronary Artery Disease s/p Stent
- Continue aspirin
Paroxysmal Atrial Fibrillation
- Continue Eliquis for anticoagulation
- Continue metoprolol
Essential Hypertension
- Continue amlodipine and metoprolol with hold parameters
Hyperlipidemia
- Continue atorvastatin
COPD, no acute exacerbation
- Transition to DuoNeb during hospitalization
BPH
- Continue Finasteride and Tamsulosin
Dementia, complicated by Anxiety/Depression
- No mood issues or behaviors here
- Continue aripiprazole, bupropion and trazodone
- Continue clonazepam but hold for sedation
DVT proph: Eliquis
Code Status: Limited DNR, No Intubation
Anticipated Discharge: 24 - 48 hours
Subjective/Interval History
-
Date of Service: September 16, 2024
No overnight events. Feeling okay.
Objective Data
-
Labs:
Laboratory Results
09/16/24
08:55
WBC 5.6
Hgb 11.8 L
Hct 36.1 L
Plt Count 183
Sodium 142
Potassium 3.7
Chloride 113 H
Carbon Dioxide 22
BUN 17
Creatinine 1.4 H
Glucose 110 H
Calcium 9.0
Vital Signs:
Vital Signs
Temp Pulse Resp BP Pulse Ox
98.2 F 76 18 120/71 98
09/16/24 11:43 09/16/24 11:43 09/16/24 11:43 09/16/24 11:43 09/16/24 11:43
I&O
09/15/24 09/16/24 09/17/24
06:59 06:59 06:59
Intake Total 580 / 580 720 / 720
Output Total 850 / 850 300 / 300
Balance 580 / 580 -130 / -130 -300 / -300
Review of Systems
-
Unable to obtain full review of systems at this time due to: Dementia
History Source: Patient
Constitutional: Reports Fatigue
EENT: Reports No Symptoms Reported
Respiratory: Reports No Symptoms
Cardiac: Reports No Symptoms
Abdomen/GI: Reports No Symptoms
Genitourinary: Reports No Symptoms
Musculoskeletal: Reports No Symptoms
Skin: Reports No Symptoms
Neuro: Reports No Symptoms
Endocrine: Reports No Symptoms
Physical Exam
-
General: No Apparent Distress and Comfortable
HEENT: Normocephalic, Atraumatic, Moist Mucous Membranes, Anicteric and No Ptosis
Respiratory: Clear to Auscultation and Non Labored Respirations
Cardiac: Regular Rhythm and S1/S2
GI: Soft, Nontender and Nondistended
Genito-urinary: No Costovertebral Tender and Other (mild suprapubic tenderness)
Musculoskeletal: No Clubbing, No Cyanosis and No Edema
Skin: Warm, Dry and IV Access / Catheter Site
Neuro: Awake, Alert and Oriented
Hematologic / Lymphatic: No Lymphadenopathy
Psych: Calm and Apparent Dementia
--- NOTE | 2024-09-16 14:26 | CM ---
Patient seen at bedside with physicians on . Patient states that his plan is to return to [facility]. CM spoke with Genevieve liamichael at facility and confirmed Midline is accepted at facility. Patient referral sent via all scripts and updated
VAT entry level sales representative. CM will continue to follow for discharge planning needs.
Plan; return to SNF; LTC will need ambulance transportation and no auth needed.
[2024-09-16 15:44] VITALS: BP 122/68
[2024-09-16] MEDS: TOPROL XL 50 MG PO (17:16)
[2024-09-16] MEDS: DESYREL 150 MG PO (21:00)
[2024-09-16] MEDS: DESYREL 25 MG PO (21:00)
[2024-09-16] MEDS: LIPITOR 40 MG PO (21:01)
[2024-09-16] MEDS: MELATONIN 10 MG PO (21:01)
[2024-09-16] MEDS: LIPITOR 20 MG PO (21:01)
[2024-09-16] MEDS: FLOMAX 0.4 MG PO (21:01)
[2024-09-16 23:11] VITALS: BP 134/79
[2024-09-17 06:00] VITALS: BMI 35.6
[2024-09-17] MEDS: DUONEB 3 ML INH (07:12)
[2024-09-17] MEDS: WELLBUTRIN XL (24 hour extended release) 150 MG PO (07:58)
[2024-09-17] MEDS: ABILIFY 5 MG PO (07:58)
[2024-09-17] MEDS: PROSCAR 5 MG PO (07:58)
[2024-09-17] MEDS: ASPIR LOW (ENTERIC COATED) 81 MG PO (07:58)
[2024-09-17] MEDS: KLONOPIN 0.5 MG PO (07:58)
[2024-09-17] MEDS: NEURONTIN 300 MG PO (07:58)
[2024-09-17] MEDS: NORVASC 5 MG PO (07:58)
[2024-09-17] MEDS: ELIQUIS 5 MG PO (07:58)
[2024-09-17 08:01] LABS: Hematocrit 37.7 % (39.0-52.0); Hemoglobin 12.5 g/dL (13.0-18.0); Mean Corp Hgb Conc. 33.2 g/dL (33.0-37.0); Mean Corpuscular Volume 88.9 fL (80.0-94.0); Platelet Count 206 10^3/uL (130-400); Red Cell Dist. Width 14.3 % (11.5-14.5)
[2024-09-17 08:25] VITALS: BP 134/73
[2024-09-17 09:05] LABS: ALT (SGPT) 24 U/L (0-50); AST (SGOT) 23 U/L (17-59); Albumin 3.4 g/dl (3.5-5.0); Alkaline Phosphatase 82 U/L (38-126); Blood Urea Nitrogen 15 mg/dl (9-20); Calcium 8.8 mg/dl (8.4-10.2); Carbon Dioxide 24 mmol/L (22-30); Chloride 110 mmol/L (98-107); Estimated Creatinine Clearance 58 ml/min; Glucose 92 mg/dl (70-99); Potassium 4.2 mmol/L (3.5-5.1); Sodium 141 mmol/L (135-145); Total Protein 5.8 g/dl (6.3-8.2); eGFR > 60.00
--- NOTE | 2024-09-17 09:10 | W.PN.ID1 ---
Date of Service
Date of Service: September 17, 2024
Today's Communication
- Continue Ertapenem 1g IV q24 (d5 appropriate abx) through 09/22.
ID will sign off.
Assessment / Plan
# Symptomatic MDR ESBL-Ecoli UTI
# Fever resolved
# Leukocytosis resolved
- blood cx's neg to date.
- Continue Ertapenem 1g IV q24 (d5 appropriate abx) through 09/22.
- Infusion sheet submitted to marketing area manager 09/16
ID will sign off.
# Conditions GRAPHIC PRE PRESS TRADES WORKER
Essential Hypertension
Hyperlipidemia
CKD Stage III
Coronary Artery Disease s/p Stent
Paroxysmal Atrial Fibrillation
COPD
BPH
Dementia
Anxiety/Depression
hx Alcohol Use Disorder
LLE DVT in Jan 2024
Right nephrectomy due to benign mass
Chief Complaint
-: UTI
Subjective / Review of Systems
Feels better. No further urine frequency.
Vital Signs / Physical Exam
Vital Signs
Vital Signs
Temp Pulse Resp BP Pulse Ox
98.1 F 71 18 134/73 96
09/17/24 08:25 09/17/24 08:25 09/17/24 08:25 09/17/24 08:25 09/17/24 08:25
Physical Exam
Constitutional: No Acute Distress
Cardiovascular: Regular Rate and S1/S2
Pulmonary: Clear
Gastrointestinal: Soft, Non Tender, Non Distended and Normal Bowel Sounds
Extremities: Negative Edema
Objective Data
Lab Data
Lab Results
09/17/24 07:46
09/17/24 07:46
Estimated Creat Clear 58 ml/min 09/17/24 07:46
Lactic Acid Cancelled 09/13/24 16:15
Total Bilirubin 0.6 mg/dl (0.2-1.3) 09/17/24 07:46
AST 23 U/L (17-59) 09/17/24 07:46
ALT 24 U/L (0-50) 09/17/24 07:46
Alkaline Phosphatase 82 U/L (38-126) 09/17/24 07:46
Most recent labs reviewed.
Micro Results:
09/13/24 12:08 Blood Culture - Preliminary
Blood/Venous No Growth in 72 hours- Final report to follow
09/13/24 12:08 Blood Culture - Preliminary
Blood/Venous No Growth in 72 hours- Final report to follow
09/13/24 12:09 Urine Culture - Final
Urine Escherichia coli - ESBL
09/14/24 01:28 MRSA Screen - Final
Nose No Methicillin Resistant Staphylococcus aureus isolated.
09/13/24 12:08 Influenza Types A & B (ROBB) - Final
Nasal Swab Negative for Influenza A & B, NAAT
Negative results must be combined with clinical observations
and patient history.
Nucleic Acid Amplification test (NAAT)performed on the
[employer] platform.
09/13/24 CXR No radiographic evidence of acute cardiopulmonary abnormality. Unchanged enlargement of the cardiac silhouette.
--- NOTE | 2024-09-17 09:29 | W.PN.HOSP.TC ---
Addendum entered and electronically signed by Priya Rothman MD 09/17/24 14:43:
I saw and evaluated the patient independently. I reviewed the resident�s note and agree with findings and plan as documented by Dr. Hoyos.
GENERAL: well developed, well nourished, male in no apparent distress
HEENT: NC/AT
HEART: regular rate and rhythm, +S1, +S2
LUNGS : clear to auscultation bilaterally
ABDOM: soft, nontender, nondistended, + bowel sounds
EXT: no cyanosis, clubbing, or edema--midline left arm
NEUROLOGIC: grossly intact
Sepsis (POA)- suspect secondary to ESBL E. coli UTI--Reviewed prior culture data from July 2024 with ESBL E. coli--apprec ID, changing Zosyn to ertapenem--will need IV ABX through 09/22/24-- blood cultures negative--WBC count has improved from
admission--ok for d/c back to SNF
Acute kidney injury on CKD Stage III--Holding Lasix--Monitor creatinine closely, improving (down from 1.9 to 1.2--baseline ~ 1.2?)--restart lasix at d/c
acute hypoxemic resp insufficiency--now off O2
Coronary Artery Disease s/p Stent--Continue aspirin
Paroxysmal Atrial Fibrillation--Continue Eliquis for anticoagulation--Continue metoprolol
Essential Hypertension--Continue amlodipine and metoprolol with hold parameters
Hyperlipidemia--Continue atorvastatin
COPD, no acute exacerbation--Transition to DuoNeb during hospitalization
BPH--Continue Finasteride and Tamsulosin
Dementia, complicated by Anxiety/Depression--no mood issues or behaviors here--Continue aripiprazole, bupropion and trazodone--Continue clonazepam but hold for sedation
DVT proph: Eliquis
Code Status: Limited DNR, No Intubation
Original Note:
Today's Communication/Plan
-
Patient appears to be back at his baseline and is medically appropriate for discharge. Will be moving forward with discharge planning.
Assessment / Plan
Assessment / Plan
-Sepsis secondary to ESBL E. coli UTI: Monitoring
Recent ESBL UTI a month ago, treated with piperacillin+tazobactam.
Hemodynamically stable, afebrile since admission, and blood work improving.
Piperacillin+tazobactam this admission; transitioned to ertapenem per ID. ID signed off
Blood cultures were negative -white blood cell count stable at 6.6
Will need ertapenem through 09-22-24; midline has been placed and will need to coordinate with LTC.
- Acute kidney injury on CKD Stage IIIa: Resolved
Secondary to sepsis most likely.
Continue to hold diuretics.
EDWIN on CKD resolved
Creatinine was 1.2 on 09/17/2024 which is an improvement from 1.4 on 09/16/2024
-Acute hypoxemic respiratory insufficiency: Resolved
Required 3L via NC on admission.
Unclear if wears O2 at baseline.
Off oxygen now.
-Coronary Artery Disease s/p Stent: Stable
Continue aspirin
-Paroxysmal Atrial Fibrillation: Stable
Continue Eliquis for anticoagulation
Continue metoprolol
-Essential Hypertension: Stable
Continue amlodipine and metoprolol with hold parameters
-Hyperlipidemia
Continue atorvastatin
-COPD, no acute exacerbation
Transition to DuoNeb during hospitalization
-BPH
Continue Finasteride and Tamsulosin
-Dementia, complicated by Anxiety/Depression
Mood stable, patient cooperative
Continue aripiprazole, bupropion and trazodone
Continue clonazepam but hold for sedation
DVT proph: Eliquis
Code Status: Limited DNR, No Intubation
Anticipated Discharge: Today
Subjective/Interval History
-
Date of Service: September 17, 2024
Met with patient at the bedside. He was sleepy this morning and difficult to arouse to talk. Patient said that he was resting comfortably just feels sleepy.
Objective Data
-
Labs:
Laboratory Results
09/17/24
07:46
WBC 6.6
Hgb 12.5 L
Hct 37.7 L
Plt Count 206
Sodium 141
Potassium 4.2
Chloride 110 H
Carbon Dioxide 24
BUN 15
Creatinine 1.2
Glucose 92
Calcium 8.8
Total Bilirubin 0.6
AST 23
ALT 24
Alkaline Phosphatase 82
Vital Signs:
Vital Signs
Temp Pulse Resp BP Pulse Ox
98.1 F 71 18 134/73 96
09/17/24 08:25 09/17/24 08:25 09/17/24 08:25 09/17/24 08:25 09/17/24 08:25
I&O
09/16/24 09/17/24 09/18/24
06:59 06:59 06:59
Intake Total 720 / 720 480 / 480
Output Total 850 / 850 1280 / 1280 200 / 200
Balance -130 / -130 -800 / -800 -200 / -200
Review of Systems
-
History Source: Patient
Constitutional: Reports No Symptoms
EENT: Reports No Symptoms Reported
Respiratory: Reports No Symptoms
Cardiac: Reports No Symptoms
Abdomen/GI: Reports No Symptoms
Genitourinary: Reports No Symptoms
Skin: Reports No Symptoms
Neuro: Reports No Symptoms
Endocrine: Reports No Symptoms
Hematologic / Lymphatic: Reports No Symptoms
Physical Exam
-
General: Well Developed, Well Nourished and No Apparent Distress
HEENT: Normocephalic, Atraumatic and Moist Mucous Membranes
Respiratory: Clear to Auscultation, Non Labored Respirations and Clear to Percussion
Cardiac: Regular Rhythm and S1/S2
GI: Soft, Nontender, Nondistended and Normal Bowel Sounds
Musculoskeletal: No Clubbing, No Cyanosis and No Edema
Skin: Warm and Dry
Neuro: Awake, Alert, Oriented and AO x 3
Psych: Calm
[2024-09-17] MEDS: INVANZ 60 MG IV (13:35)
--- NOTE | 2024-09-17 14:51 | W.DCSUMMARY ---
Addendum entered and electronically signed by Priya Rothman MD 09/17/24 15:40:
Read, reviewed, and agree. See same day progress note for additional details. Time spent coordinating care, DC planning, review of DC plan of care with resident, transition of care, review of records in EMR, med rec, consults, notes, d/w
consultants, nursing, family, and CM = 35 minutes
Original Note:
Discharge Summary
Discharge Data
Date of Admission: 09/13/24
Date of Discharge: 09/17/24
-
Pending Results: No
Hospital Course
Discharging Physician : Dr. Rothman
Disposition : SNF
Primary care physician : Servando Tidwell
Principal Discharge diagnosis : Sepsis secondary to UTI
Chronic Discharge diagnosis : Coronary artery disease, paroxysmal atrial fibrillation, chronic kidney disease stage III, BPH, COPD, and dementia
Hospital Course : Patient is a 69-year-old male with a past medical history of coronary artery disease, paroxysmal atrial fibrillation, chronic kidney disease, BPH, COPD, and dementia who presented to the emergency department with fever on
09/13/2024. The patient resides at a local nursing facility and was sent to the emergency department after being found to have fever and chills. In the emergency department, the patient complained of low back pain which he reported to be more
chronic. In the emergency department he had a slight cough but denied shortness of breath. He reported feeling off and slightly confused. He denied any abdominal pain, nausea, vomiting, or diarrhea. He denied any urinary symptoms. In the
emergency department blood cultures were drawn which were found to be negative. Urine analysis was 4+ occult blood, positive for nitrites, and 3+ for leukocyte Estrace indicating UTI. Urine culture was taken. Patient had a fever of 102 with
leukocytosis. The patient was admitted to [facility] for sepsis secondary to UTI.
The patient was given 2 L of IV fluids in the emergency department. The patient was started on Zosyn prior to the urine culture results being resulted. Patient was found to have acute kidney injury on CKD stage IIIa with an elevated creatinine of
1.9 on admission. Lasix was held while creatinine was monitored. The patient COPD was managed with DuoNebs. The remainder of the patient's home medications were continued for his chronic conditions including paroxysmal atrial fibrillation,
essential hypertension, and BPH. Patient was initially on 3 L of nasal cannula oxygen but was able to be weaned down to room air. As the patient continued to receive antibiotics the patient's white blood cell count continue to improve and blood
cultures remained negative. Infectious diseases was consulted in regards to changing the patient over to ertapenem after urine culture showed that the patient had ESBL E. coli UTI. Lasix was held during the hospital stay and the patient's
creatinine steadily improved and returned back to the patient's baseline of 1.2�1.4. Infectious diseases recommended that the patient be transition from Zosyn to ertapenem 1 g IV every 24 hours through 09/22/2024. In order to ensure safe antibiotic
administration at SNF a midline was placed. The patient does not have any complaints and is not opposed to discharge at this time.
The patient has reached maximal benefit from this hospital stay and is appropriate for discharge at the present time. The patient is medically stable and there are no barriers that would impede the patient from being safely discharged at the
present time. The patient should follow-up with his primary care provider within 1 to 2 weeks following discharge. The patient should continue to take the ertapenem through 09/22/2024. [facility] should coordinate midline management and removal.
Important imaging findings :
- Chest x-ray conducted on 09/13/2024: No radiographic evidence of acute cardiopulmonary abnormality. Unchanged enlargement of the cardiac silhouette.
Procedure findings : N/A
Discharge Plan
-
Patient Disposition: [facility]/SNF
Discharge Diagnosis/Procedures: Sepsis secondary to ESBL E. coli UTI
Condition: Good
Diet: No restrictions
Activity: As tolerated
Driving Restrictions: As prior to admission
Bathing Restrictions: None
Referrals:
Servando Tidwell MD [Family Provider] - in less than 1 week
Prescriptions:
New
Ertapenem [Invanz] 1000 MG
0.9% Sodium Chloride [Nss] 50 ML
120 mls/hr IV Q24H
Ordered By: Toya Hoyos MD, Resident
Last Taken: 09/17/24 13:35 60 mls
Continued
acetaminophen [Tylenol] 325 mg Tablet
650 mg PO Q4HPRN MDD 3000mg/day PRN (Reason: mild pain/temp>101F)
lidocaine 4 % Adhesive Patch,Medicated
1 patch TOPICAL DAILY
trazodone 50 mg Tablet
175 mg PO HS
lidocaine 4 % Cream
1 applic TOPICAL TIDPRN PRN (Reason: right calf)
loperamide 2 mg Tablet
2 mg PO Q6HPRN PRN (Reason: diarrhea)
aspirin 81 mg Tablet,Delayed Release (Dr/Ec)
81 mg PO BID
magnesium hydroxide [Milk of Magnesia] 400 mg/5 mL Suspension
2,400 mg PO [id number] PRN (Reason: if no bm on 3rd day)
tamsulosin [Flomax] 0.4 mg Capsule
0.4 mg PO HS
bisacodyl [Dulcolax (bisacodyl)] 10 mg Suppository
10 mg ID DAILYPRN PRN (Reason: if no BM after mom)
Fleet Enema 19-7 gram/118 mL Enema
118 ml ID DAILYPRN PRN (Reason: if no bm after dulcalax)
gabapentin 300 mg Capsule
300 mg PO BID
albuterol sulfate 90 mcg/actuation Hfa Aerosol Inhaler
2 puff INHALATION R Q4HPRN PRN (Reason: wheezing/SOB)
fluticasone propionate 50 mcg/actuation [place],Suspension
1 spray INTRANASAL DAILY
finasteride 5 mg Tablet
5 mg PO DAILY
Icy Hot (menthol) 5 % Adhesive Patch,Medicated
1 patch TOPICAL DAILY
melatonin 10 mg Tablet
10 mg PO HS
Eliquis 5 mg Tablet
5 mg PO Q12H MDD hold for s/s bleeding
metoprolol succinate 50 MG tablet extended release 24 hr
50 mg PO QPM
tramadol 50 MG tablet
50 mg PO Q8HPRN PRN (Reason: moderate pain)
cyanocobalamin (vitamin B-12) 1,000 MCG tablet
1,000 mcg PO DAILY
thiamine HCl (vitamin B1) 100 MG tablet
100 mg PO BID
amlodipine 5 MG tablet
5 mg PO DAILY
folic acid 1 MG tablet
1 mg PO DAILY
atorvastatin 20 mg tablet
20 mg PO HS
Rx Instructions:
09/13/2024, give w/ 40 mg for a total of 60 mg.
aripiprazole 5 mg tablet
5 mg PO DAILY
bupropion HCl 150 mg tablet extended release 24 hr
150 mg PO DAILY
furosemide 20 mg tablet
20 mg PO DAILY
atorvastatin 40 mg Tablet
40 mg PO HS
Rx Instructions:
09/13/2024, give w/ 20 mg for a total of 60 mg.
dextromethorphan-guaifenesin 10-100 mg/5 mL Liquid
10 ml PO Q4HPRN PRN (Reason: cough)
clonazepam [Klonopin] 0.5 mg Tablet
0.5 mg PO DAILY
bimatoprost 0.01 % Drops
1 drp BOTH EYES HS
umeclidinium-vilanterol 62.5-25 mcg/actuation Blister With Device
1 inh INHALATION R DAILY
Discharge Orders:
Discharge Patient (As Directed); Ordered 09/17/24
Ordered By: Toya Hoyos
Discharge Date and Time
Print Language: ARGENTINE
--- NOTE | 2024-09-17 14:59 | CM ---
Patient for return to SNF at [facility] today. Patient seen at bedside with physicians on . patient in agreement with plan. CM completed paperwork for transportation and faxed antibiotic script and midline report. Patient liaision given
phone number for the unit and please call report to [phone] and fax to [phone]. CM will call to patient family to review imm and CM will continue to follow for discharge planning needs.
Plan; transfer to [facility].
[2024-09-17 16:15] VITALS: BP 146/76
[2024-09-17] MEDS: TOPROL XL 50 MG PO (17:25)
[2024-09-17 19:12] VITALS: BP 138/78
== END 2024-09-17 19:20 | DRG 872 ==
LOC: 4 WEST ACU 15:33
PROVIDERS: Emergency Medicine; Physician Assistant Medical; Student in an Organized Health Care Education/Training Program; ADMITTING PHYSICIAN Hospitalist; ATTENDING PHYSICIAN Internal Medicine; EMERGENCY PHYSICIAN Emergency Medicine; FAMILY PHYSICIAN Internal Medicine; OTHER PHYSICIAN Internal Medicine Infectious Disease
DX: A41.9 Sepsis, unspecified organism (principal); N17.9 Acute kidney failure, unspecified; N39.0 Urinary tract infection, site not specified; F03.93 Unspecified dementia, unspecified severity, with mood disturbance; F03.94 Unspecified dementia, unspecified severity, with anxiety; Z16.12 Extended spectrum beta lactamase (ESBL) resistance; F17.200 Nicotine dependence, unspecified, uncomplicated; Z11.52 Encounter for screening for COVID-19; Z66 Do not resuscitate; I12.9 Hypertensive chronic kidney disease with stage 1 through stage 4 chronic kidney disease, or unspecified chronic kidney disease; N18.31 Chronic kidney disease, stage 3a; I25.10 Atherosclerotic heart disease of native coronary artery without angina pectoris; Z95.5 Presence of coronary angioplasty implant and graft; I48.0 Paroxysmal atrial fibrillation; Z79.01 Long term (current) use of anticoagulants; J44.9 Chronic obstructive pulmonary disease, unspecified; N40.0 Benign prostatic hyperplasia without lower urinary tract symptoms; E78.00 Pure hypercholesterolemia, unspecified
CPT/HCPCS: 51701; 71046; 80048; 80053; 81003; 81015; 83605; 83735; 85025; 85027; 87040; 87070; 87071; 87086; 87186; 87502; 87811; 93005; 94640; 96365; 97163; 97530; 99285; 99406; J1335

== ENCOUNTER 2024-09-24 13:55 | Emergency (ER) | payer MEDICARE, OTHER, SELFPAY ==
[2024-09-24] VITALS (32 sets, daily range): BP systolic 100–146; BP diastolic 60–123
[2024-09-24 14:52] LABS: Hematocrit 47.6 % (39.0-52.0); Hemoglobin 15.3 g/dL (13.0-18.0); Mean Corp Hgb Conc. 32.1 g/dL (33.0-37.0); Mean Corpuscular Volume 88.5 fL (80.0-94.0); Nucleated Red Blood Cells % 0 % (-); Platelet Count 393 10^3/uL (130-400); Red Cell Dist. Width 14.1 % (11.5-14.5)
[2024-09-24 14:59] LABS: ALT (SGPT) 37 U/L (0-50); AST (SGOT) 29 U/L (17-59); Albumin 4.9 g/dl (3.5-5.0); Alkaline Phosphatase 129 U/L (38-126); Blood Urea Nitrogen 30 mg/dl (9-20); Calcium 10.0 mg/dl (8.4-10.2); Carbon Dioxide 27 mmol/L (22-30); Chloride 104 mmol/L (98-107); Estimated Creatinine Clearance 37 ml/min; Glucose 101 mg/dl (70-99); Potassium 4.3 mmol/L (3.5-5.1); Sodium 142 mmol/L (135-145); Total Protein 8.0 g/dl (6.3-8.2); eGFR 37.25
--- NOTE | 2024-09-24 15:03 | VATNOTE ---
Addendum entered by Reginaldo Horn RN 09/24/24 15:05:
TCL removed was 14cm.
Original Note:
Patient presented to ER with Left arm midline. Midline dressing non-occlusive with blood around catheter; no cap on end (open to air). Patient had midline for antibiotics until 09/22. Midline removed.
--- NOTE | 2024-09-24 16:43 | ED.GENMED ---
History of Present Illness
General
Chief Complaint: Change in Mental Status
Source: patient
Exam Limitations: none
Time Seen by Provider: 09/24/24 16:23
Nursing documentation reviewed up to this point in time: agreed with
History of Present Illness
History of Present Illness:
69-year-old male with past medical history of dementia aphasia A-fib, hyperlipidemia CO WPW chronic renal failure, (stage III A )CAD presents to the ER for evaluation of change in mental status. Patient presents awake alert he is oriented to person
and year he is confused to place. He is unsure why he is here he has no complaints. He does follow commands. Patient was recently admitted for sepsis secondary to ESBL E. coli UTI and has a midline in place.
I spoke to nurse at [facility] who reports ever since he got back from the admission pt has been confused. He normally walks and is now not walking and is incontinent of both stool and urine. Today pt was more weak than past several days. IV
antix completed yesterday
Past History
Past History
ED Past Medical History: Arrthythmia (Paroxysmal atrial fibrillation), CAD, COPD, HTN, Hypercholesterolemia, CO (February 2017), Other (Depression, anemia, tobacco dependence) and Other
ED Past Surgical History: Cardiac (PTCA with stent) and Urological (Right nephrectomy June 2017)
Social History
Tobacco: Smoker
Alcohol: Chronic alcoholic
Drug: None
Personal:
Living: with family (with brother)
Employment: Retired
Family History
Family History: Other (No significant)
Phy Exam
General Physical Exam
General Presentation: no apparent distress
General age: appears stated age
General Skin: warm and dry
General Habitus: normal
General Mental: alert
Cardiovascular Exam
Cardiovascular Exam: regular rate/rhythm, no murmur and normal peripheral pulses
Pulmonary Exam
Pulmonary Exam: lungs clear and no respiratory distress
Neurological Exam
Neurological Exam: alert and oriented x3
Musculoskeletal Exam
Musculoskeletal Exam: full ROM and other (left arm midline in place No erythema )
Skin Exam
Skin Exam: normal color and warm/dry
Psychiatric Exam
Psychiatric Exam: normal mood/affect
Course
Orders/Labs/Results
Orders:
Orders
09/24/24 14:28
Electrocardiogram (*1) Urgent
Reason for Study: Other
Other Reason for Exam: Possible Sepsis
Cardiac Monitoring- Treatment ONCE
EKG- Treatment ONCE
O2 Therapy [RESP] Urgent
Titrate/Wean O2 to maintain O2 sat greater than (%): 93
Special Instructions: TO MAINTAIN CONTINUOUS O2 SATS > OR = 93%
Pulse Ox/cont/shift [RESP] Urgent
Quantity: 1
Special Instructions: CONTINUOUS
09/24/24 14:29
Complete Blood Count/With Diff Urgent
Comprehensive Metabolic Panel Urgent
Blood Culture Q20M
[place] Source: Blood/Venous
Specimen Description:
Comment: Urgent from separate sites. If patient screens positive for possible sepsis
Blood Culture Q20M
[place] Source: Blood/Venous
Specimen Description:
Comment: Urgent from separate sites. If patient screens positive for possible sepsis
09/24/24 17:25
UA Reflex to Culture [Urinalysis Reflex To Culture] Urgent
Date Specimen was Collected: 09/24/24
Time Specimen was Collected: 17:22
09/24/24 17:38
CT Head W/o Iv Contrast Urgent
Comment:
Reason For Exam: change in ms
09/24/24 17:42
Chest [CR Chest - 2 Views ] Urgent
Comment:
Reason For Exam: change in ms
09/24/24 22:35
0.9% Sodium Chloride 1000 ml [Nss] 1,000 ml IV BOLUS
09/24/24 22:45
COVID-19 Antigen Urgent
Source: Nasal Swab
Influenza A+B Rapid Molecular Urgent
[place] Source: Nasal Swab
Specimen Description:
09/24/24 23:46
Influenza A+B Rapid Molecular Urgent
[place] Source: Nasal Swab
Specimen Description:
Abnormal Lab Results
09/24/24 09/24/24
14:29 17:25
WBC 11.1 H 10^3/uL
(4.8-10.8)
MCHC 32.1 L g/dL
(33.0-37.0)
Abs Immat Gran (auto) 0.1 H 10^3/uL
(0-0.05)
Absolute Neuts (auto) 8.3 H 10^3/uL
(1.4-6.5)
Neutrophils % 75.4 H %
(42.2-75.2)
Lymphocytes % 17.5 L %
(20.5-51.1)
BUN 30 H mg/dl
(9-20)
Creatinine 1.9 H mg/dL
(0.7-1.3)
Glucose 101 H mg/dl
(70-99)
Alkaline Phosphatase 129 H U/L
(38-126)
Urine Ketones 2+ A
(Negative)
09/24/24 14:29
09/24/24 14:29
Vital Signs
Initial and Last Documented VS:
Initial Vital Signs
Temp Pulse Resp BP Pulse Ox
98.7 F 73 20 121/101 95
09/24/24 14:06 09/24/24 14:06 09/24/24 14:06 09/24/24 14:06 09/24/24 14:06
Last Documented Vital Signs
Temp Pulse Resp BP Pulse Ox
97.8 F 67 20 100/76 96
09/24/24 22:42 09/25/24 00:00 09/25/24 00:00 09/25/24 00:00 09/24/24 23:45
MDM/Problems Addressed
Differential Diagnosis Includes:
Not limited to dehydration infection pneumonia
MDM/Problems Addressed:
As documented patient is a 69-year-old male who does have a history of chronic kidney disease and had a recent mission for UTI ESBL. He had a midline was getting IV ertapenem last dose was yesterday. [facility] reports patient not himself more
confused not walking around like normal. Patient was awake alert he is confused able to answer some questions he is not febrile and has not minimally elevated white count of 11.1 stable hemoglobin. Patient's creatinine is elevated 1.9 and baseline
is around 1.4.
Urinalysis is negative chest x-ray is negative no clear source of infection. Midline site looks fine will remove midline blood cultures were done Case discussed admitting hospitalist who feels that this may be a component of dehydration however
with no clear infection no recent admit at this time. This is reasonable. Will plan to check COVID and flu and give fluids and plan for discharge back to nursing facility
COVID/flu neg . after IVF will d/c back to [facility]. I did speak with nurse at [facility]
midline removed by nursing .
*Radiology
Radiology exam reviewed: radiology read reviewed
*Pulse Oximetry
SaO2: 95
Oxygen Mode of Delivery: Room air
Patient hypoxic: no
*EKG
Interpreted by ED Provider?: Yes
Heart Rate: 76
Rate: normal
Rhythm: sinus
Ischemia: no ischemia
*Critical Care Note
Total Time (30-74mins, 75-104mins- exclusive of procedures): Not Applicable
ED Attending Note
-
Portions of this chart may have been created with voice recognition software.� Occasional wrong word or��sound alike� substitutions may have occurred due to the inherent limitations of voice recognition software.
Discharge Plan
Departure
Patient Disposition: Senior Care/SNF
Date of Disposition: 09/24/24
Time of Disposition: 23:45
Patient with high blood pressure during this ER visit?: Yes
Condition: Fair
Covid-19: Not Applicable
Discharge Problem:
Altered mental status
Instructions: Altered Mental Status (DC), Dementia (DC), BLOOD PRESSURE
Prescriptions:
No Action
acetaminophen [Tylenol] 325 mg Tablet
650 mg PO Q4HPRN MDD 3000mg/day PRN (Reason: mild pain/temp>101F)
lidocaine 4 % Adhesive Patch,Medicated
1 patch TOPICAL DAILY
trazodone 50 mg Tablet
175 mg PO HS
lidocaine 4 % Cream
1 applic TOPICAL Q8HPRN PRN (Reason: right calf)
loperamide 2 mg Tablet
2 mg PO Q6HPRN PRN (Reason: diarrhea)
aspirin 81 mg Tablet,Delayed Release (Dr/Ec)
81 mg PO BID
magnesium hydroxide [Milk of Magnesia] 400 mg/5 mL Suspension
2,400 mg PO [id number] PRN (Reason: if no bm on 3rd day)
tamsulosin [Flomax] 0.4 mg Capsule
0.4 mg PO HS
bisacodyl [Dulcolax (bisacodyl)] 10 mg Suppository
10 mg RI DAILYPRN PRN (Reason: if no BM after mom)
Fleet Enema 19-7 gram/118 mL Enema
118 ml RI DAILYPRN PRN (Reason: if no bm after dulcalax)
gabapentin 300 mg Capsule
300 mg PO Q12H
albuterol sulfate 90 mcg/actuation Hfa Aerosol Inhaler
2 puff INHALATION R Q4HPRN PRN (Reason: wheezing/SOB)
fluticasone propionate 50 mcg/actuation [place],Suspension
2 spray INTRANASAL DAILY
finasteride 5 mg Tablet
5 mg PO DAILY
menthol [Icy Hot (menthol)] 5 % Adhesive Patch,Medicated
1 patch TOPICAL DAILY
melatonin 10 mg Tablet
10 mg PO HS
Eliquis 5 mg Tablet
5 mg PO Q12H MDD hold for s/s bleeding
metoprolol succinate 50 MG tablet extended release 24 hr
50 mg PO QPM
tramadol 50 MG tablet
50 mg PO Q8HPRN PRN (Reason: moderate pain)
cyanocobalamin (vitamin B-12) 1,000 MCG tablet
1,000 mcg PO DAILY
thiamine HCl (vitamin B1) 100 MG tablet
100 mg PO BID
amlodipine 5 MG tablet
5 mg PO DAILY
folic acid 1 MG tablet
1 mg PO DAILY
atorvastatin 20 mg tablet
20 mg PO HS
Rx Instructions:
take w/ 40 mg for a total of 60 mg.
aripiprazole 5 mg tablet
5 mg PO DAILY
bupropion HCl 150 mg tablet extended release 24 hr
150 mg PO DAILY
furosemide 20 mg tablet
20 mg PO DAILY
dextromethorphan-guaifenesin 10-100 mg/5 mL Liquid
10 ml PO Q4HPRN PRN (Reason: cough)
clonazepam [Klonopin] 0.5 mg Tablet
0.5 mg PO DAILY
bimatoprost 0.01 % Drops
1 drp BOTH EYES HS
umeclidinium-vilanterol 62.5-25 mcg/actuation Blister With Device
1 inh INHALATION R DAILY
atorvastatin 20 mg Tablet
40 mg PO HS
Rx Instructions:
take w/ 20 mg for a total of 60 mg.
Referrals:
Servando Tidwell MD [Family Provider]
Activity Restrictions/Additional Instructions:
As documented patient's creatinine was mildly elevated and he was given fluids. His white count was minimally elevated at 11.1 however his urine and x-ray were negative for pneumonia negative for UTI. His midline was removed.
CT head negative. Blood cultures were taken.
you will be notified if blood cultures were positive for patient to come back.
Interventions
Interventions:
*Risk Screen - Suicide Last Done: 09/24/24 14:06
*General Assessment Last Done: 09/24/24 14:06
*Neglect/Abuse Screening Last Done: 09/24/24 14:06
*ED- Fall Risk Assessment Last Done: 09/24/24 14:06
*ED COVID-19 Vaccine History Last Done: 09/24/24 14:06
*Nursing Disposition Last Done: 09/25/24 01:03
ED- Neurological Assessment Last Done: 09/24/24 15:42
ED Swallowing Screen Last Done: 09/24/24 23:05
Discharge Date and Time
Discharge Date/Time: 09/25/24 01:05
Print Language: SWEDISH
[2024-09-24 17:31] LABS: Urine Character Clear (Clear)
[2024-09-24 22:49] LABS: Glucose - Point of Care 71 mg/dl (70-99)
[2024-09-24] MEDS: NSS 1000 IV (22:53)
[2024-09-24 23:26] LABS: COVID-19 Antigen Negative (Negative)
[2024-09-24 23:52] LABS: Glucose - Point of Care 76 mg/dl (70-99)
[2024-09-25] VITALS: BP 100/76
== END 2024-09-25 01:05 ==
LOC: EMR 13:55
PROVIDERS: Nurse Practitioner; Student in an Organized Health Care Education/Training Program; EMERGENCY PHYSICIAN Emergency Medicine; FAMILY PHYSICIAN Internal Medicine
DX: R41.82 Altered mental status, unspecified (principal); F03.93 Unspecified dementia, unspecified severity, with mood disturbance; E78.00 Pure hypercholesterolemia, unspecified; I48.91 Unspecified atrial fibrillation; I25.2 Old myocardial infarction; I12.9 Hypertensive chronic kidney disease with stage 1 through stage 4 chronic kidney disease, or unspecified chronic kidney disease; N18.31 Chronic kidney disease, stage 3a; F17.200 Nicotine dependence, unspecified, uncomplicated; F32.A Depression, unspecified; I25.10 Atherosclerotic heart disease of native coronary artery without angina pectoris; I48.0 Paroxysmal atrial fibrillation; J44.9 Chronic obstructive pulmonary disease, unspecified; R47.01 Aphasia; Z86.73 Personal history of transient ischemic attack (TIA), and cerebral infarction without residual deficits; Z87.440 Personal history of urinary (tract) infections; Z90.5 Acquired absence of kidney; Z95.5 Presence of coronary angioplasty implant and graft
CPT/HCPCS: 99284; 96360; 70450; 71046; 80053; 81003; 82962; 85025; 87040; 87502; 87811; 93005